=== PATIENT | female | born 1945 | race Caucasian/White ===

== ENCOUNTER 2020-07-11 06:52 | Outpatient (CLI) | payer BC, SELFPAY ==
--- NOTE | 2020-07-11 07:07 | USCV_ITS ---
Marie Becker Age: 74 Gender: F : 1945 Exam Date: 07/11/2020 07:22 Ordering Phys: Lennox Nice MD Technologist: Ruddy Prado [place] [facility] [place]: HTN Aortic Velocity @ SMA (cm/s) 87.7 RIGHT KIDNEY LEFT KIDNEY Velocity (cm/s) Velocity (cm/s) Sys/Muller Sys/Muller Resistive Index Resistive Index 91.3 / 25.8 0.72 Proximal Renal Artery 59.4 / 16.6 0.72 88.3 / 24.8 0.72 Mid Renal Artery 78.5 / 15.1 0.81 98.2 / 23.8 0.76 Distal Renal Artery 59.4 / 20.6 0.65 82.4 / 17.9 0.78 Hilar 72.1 / 18.2 0.75 72.4 / 11.2 0.85 Upper Pole 32.6 / 10.7 0.67 25.5 / 9.2 0.64 Mid Pole 30.7 / 9.0 0.71 44.4 / 10.5 0.76 Lower Pole 42.3 / 13.1 0.69 1.10 Renal Aortic Ratio 0.90 Accleration Index (cm/sec2) 1670.0 Hilar 1370.0 0 0 893.00 Upper Pole 707.00 407.00 Mid Pole 392.00 433.00 Lower Pole 986.00 90.5 Kidney Length (mm) 102.9 FINDINGS Normal kidney dimensions Normal arterial Doppler flow velocities and ratios Slightly elevated resistive indicis bilaterally CONCLUSIONS 1. No evidence of any renal artery stenosis 2. Some features of medical renal disease 3. Normal kidney dimensions bilaterally Dr Zach Richardson MD [facility] (Electronically Signed) Final Date: 11 July 2020 13:46 S
== END 2020-07-11 06:53 | disposition home or self-care (01) ==
LOC: US 06:53
PROVIDERS: PCP Family Medicine; Visit Provider Family Medicine
DX: I10 Essential (primary) hypertension (principal)
CPT/HCPCS: 93975

== ENCOUNTER 2020-08-01 13:15 | Inpatient (IN) | payer MEDICARE, BC, SELFPAY ==
[2020-08-01] VITALS (11 sets, daily range): BP systolic 101–145; BP diastolic 50–81; PULSE 64–118; RESP 14–18; TEMP 36.5–36.7; O2SAT 93–99; BMI 21.9
--- NOTE | 2020-08-01 13:32 | ECG_ITS ---
[facility] Test Date: 2020-08-01 Pat Name: Marie Becker Department: Room: Gender: Female Billing Representative: : 1945 Requested By: Wally Nova Order Number: [id number] Javan MD: Zach Richardson M.D. Measurements Intervals [place] Rate: 73 P: 31 ND: 149 QRS: -26 QRSD: 95 T: 79 QT: 409 QTc: 454 Interpretive Statements SINUS RHYTHM INCOMPLETE RIGHT BUNDLE BRANCH BLOCK [90+ ms QRS DURATION, TERMINAL R IN V1/V2, 40+ ms S IN I/aVL/V4/V5/V6] LEFT VENTRICULAR HYPERTROPHY AND ST-T CHANGE [VOLTAGE CRITERIA PLUS ST/T ABNORMALITY] POSSIBLE SEPTAL MYOCARDIAL INFARCTION , OF INDETERMINATE AGE [30 ms Q WAVE IN V1/V2] Compared to ECG 07/08/2019 21:39:48 Incomplete right bundle-branch block now present Myocardial infarct finding now present ST (T wave) deviation still present Electronically Signed On 08-01-2020 20:55:43 CDT by Zach Richardson M.D. [email or web address] state hospitalThe Betty Mills Companymercy health st[facility].[email or web address]/store/NU/[id number] bishop
--- NOTE | 2020-08-01 13:32 | XR_ITS ---
WS: [id number] XR chest 1V portable [id number] REASON FOR EXAM: dyspnea/cough FINDINGS: Suboptimal inspiratory effort. The heart is at the upper limits of normal in size. No active pulmonary parenchymal pleural disease. Degenerative spondylosis in the thoracic spine without other significant bony thorax abnormality. XR/XR chest 1V portable [id number] IMPRESSION: No acute chest abnormality.
[2020-08-01 13:42] LABS: Basophils # 0.1 10^3/uL (0.0-0.1); Basophils % 0.6 %; Eosinophils # 0.1 10^3/uL (0.0-0.8); Eosinophils % 0.8 %; Hemoglobin 13.5 g/dL (11.5-15.3); Lymphocytes # 2.1 10^3/uL (0.8-4.8); Lymphocytes % 26.5 %; Mean Corpuscular HGB Conc 34.6 g/dL (30.0-36.0); Mean Corpuscular Hemoglobin 30.8 pg (28.0-34.0); Mean Platelet Volume 10.9 fL (7.4-10.4); Monocytes # 0.8 10^3/uL (0.2-0.9); Monocytes % 9.7 %; Neutrophils # 4.82 10^3/uL (1.8-7.7); Neutrophils % 62.1 %; Nucleated Red Blood Cells % 0 %; Platelet Count 379 10^3/cmm (130-400); Red Blood Count 4.38 10^6/uL (4.1-5.3); Red Cell Distribution Width 12.6 % (12.1-15.1); White Blood Count 7.8 10^3/uL (4.0-10.0)
--- NOTE | 2020-08-01 13:59 | CT_ITS ---
WS: [id number] CT HEAD TECHNIQUE: Noncontrast CT of the head obtained from the skullbase to the vertex. CLINICAL INFORMATION: AMS COMPARISON: CT 2018 DLP: 754.[address] scans at [facility] use at least one of these dose optimization techniques: automat ed exposure control; mA and/or kV adjustment per patient size (includes targeted exams where dose is matched to clinical indication); or iterative reconstruction. FINDINGS: No evidence of intracranial hemorrhage or mass effect. Ventricular system and basal cisterns are cabral nt. Moderate small vessel changes. Moderate parenchymal volume loss. Chronic lacunar infarct left gama lamus unchanged from 2019. Normal posterior fossa. Normal fourth ventricle. small vessel changes with mild to moderate parenchymal volume loss. No extra-axial fluid collections. No evidence of mass or m ass effect. Normal pike-white differentiation. Paranasal sinuses and mastoid air cells are well aerated. .Normal visualized soft tissues. CT/CT head wo con* [id number] IMPRESSION: 1. No evidence of intracranial hemorrhage or mass effect. 2. Moderate small vessel changes with moderate parenchymal volume loss. 3. Chronic lacunar infarct left thalamus unchanged since 2019. 4. No acute intracranial findings. Notified Wally Cartagena DO at 08/01/2020 4:02 PM.
[2020-08-01 14:06] LABS: Troponin(5th) Baseline 12 ng/L (0-10)
[2020-08-01 14:28] LABS: Alanine Aminotransferase 21 U/L (0-33); Albumin Level 4.5 g/dL (3.5-5.2); Alkaline Phosphatase 100 IU/L (35-105); Aspartate Amino Transferase 20 U/L (0-32); Blood Urea Nitrogen 12 mg/dL (8-23); Calcium 10.4 mg/dL (8.5-10.5); Carbon Dioxide 22 mmol/L (22-29); Chloride 92 mmol/L (98-107); Globulin 2.6 g/dL (1.3-4.6); Glucose 166 mg/dL (65-115); Osmolality Calculated 274 mOsm/kg (285-295); Sodium 130 mmol/L (136-145); Total Bilirubin 0.5 mg/dL (0.15-1.2); Total Protein 7.1 g/dL (6.6-8.7)
[2020-08-01 14:31] LABS: Anion Gap 19.2 (5-19); Potassium 3.2 mmol/L (3.5-5.1)
--- NOTE | 2020-08-01 15:16 | ED_ITS ---
HPI - Syncope General: Chief Complaint: Syncope Stated Complaint: syncope Time Seen by Provider: 08/01/20 13:32 History of Present Illness: HPI narrative: 74-year-old female presents to the emergency room she was sitting at table with her friend and had a syncopal episode she never fell she did get rather diaphoretic according to the friend. Talk to the patient she cannot remember cannot What happened she also tell me the correct the day of the week month or year. She is able to relate that there is an upcoming presidential election but cannot recall the the COVID-19 pandemic. she is able to recite her birthdate and her home address. complaint: loss of consciousness and collapsed Onset (ago): minute(s) Description of event: post-event confusion Prodromal symptoms: none Witnessed: Yes - by Bystander Context: at rest Injuries sustained associated with event: none Associated symptoms: Deny abdominal pain, chest pain, fever(s), headache(s), lightheadedness, nausea, short of breath, vertigo or weakness Review of Systems Const: Denies: fever(s) ENMT: Denies: throat pain, ear or mastoid pain, nasal discharge or nasal congestion Card: Denies: chest pain or lightheadedness Resp: Denies: dyspnea, productive cough or non-productive cough GI: Denies: abdominal pain or nausea : Denies: flank pain, difficulty voiding, dysuria, urinary frequency or urinary urgency Skin/Breast: Denies: rash or pruritus Neuro: Denies: headache(s) or vertigo [facility] ED PFSH: Medical History (Updated 08/05/20 @ 16:02 by Sherri Gardner MD) History of stroke HTN (hypertension) Hypokalemia Hyponatremia Syncope Social History Smoking and tobacco status: never smoked Alcohol intake: never Lives independently: No (Patient states that she lives with her sister and brother sometimes.) Marital status: / Physical Exam Const: COMMON NORMALS: no acute distress GENERAL APPEARANCE: cooperative and comfortable ORIENTATION/CONSCIOUSNESS: Yes awake, Yes oriented to person, Yes oriented to place and Yes oriented to time HENMT: COMMON NORMALS: normocephalic, atraumatic and hearing grossly normal bilaterally HEAD & SCALP: normocephalic and atraumatic Eye: COMMON NORMALS: Equal, round and reactive pupils present, EOMs intact bilaterally, conjunctivae normal and no scleral icterus CONJUNCTIVA: Yes conjunctivae normal PUPIL: Yes Equal, round and reactive pupils present Neck/C-Spine: COMMON NORMALS: full ROM, no lymphadenopathy, supple and no JVD Lymph: LYMPHATIC: no lymphadenopathy noted and no lymphedema noted Resp: COMMON NORMALS: normal respiratory effort, No retractions, No use of accessory muscles and clear to auscultation bilaterally AUSCULTATION: clear to auscultation bilaterally Cardio: COMMON NORMALS: no JVD, regular rate, regular rhythm and No murmurs present (Cardio) RATE: regular rate RHYTHM: regular rhythm GI: COMMON NORMALS: Soft to palpation and No hepatosplenomegaly present AUSCULTATION: Yes normoactive bowel sounds PALPATION: Yes Soft to palpation, No Tenderness to palpation present (GI), No Guarding due to palpation present (GI) and Yes No hepatosplenomegaly present Extremity: COMMON NORMALS: normal to inspection, capillary refill normal, no clubbing, cyanosis or edema, no calf tenderness and no pedal edema Neuro: SENSORIUM/ORIENTATION: Yes oriented to person, Yes oriented to place and Yes oriented to time Skin: COMMON NORMALS: no rashes or lesions noted GENERAL SKIN EXAM: no rashes or lesions noted Course Vital Signs: Vital signs: Vital Signs Temperature 98.4 F 08/03/20 12:58 Pulse Rate 70 08/03/20 12:58 Respiratory Rate 16 08/03/20 12:58 Blood Pressure 139/62 08/03/20 12:58 Pulse Oximetry 96 08/03/20 12:58 MDM - Syncope MDM Narrative: Medical decision making narrative: Patient had a a syncopal- like episode suspect she may be on too many blood pressure medicines will admit to monitor for arrhythmia and further evaluate discussed Dr. Cruz he will accept patient on his services. Lab Data: Labs: Lab Results 08/01/20 08/01/20 08/01/20 Range/Units 13:00 13:00 13:00 WBC 7.8 (4.0-10.0) 10^3/ uL RBC 4.38 (4.1-5.3) 10^6/u L Hgb 13.5 (11.5-15.3) g/dL Hct 39.0 (37.0-47.0) % MCV 89.0 (81-99) fL MCH 30.8 (28.0-34.0) pg MCHC 34.6 (30.0-36.0) g/dL RDW 12.6 (12.1-15.1) % Plt Count 379 (130-400) 10^3/c mm MPV 10.9 H (7.4-10.4) fL Neut % (Auto) 62.1 % Lymph % (Auto) 26.5 % [place] % (Auto) 9.7 % Eos % (Auto) 0.8 % Baso % (Auto) 0.6 % Neut # (Auto) 4.82 (1.8-7.7) 10^3/u L Lymph # (Auto) 2.1 (0.8-4.8) 10^3/u L [place] # (Auto) 0.8 (0.2-0.9) 10^3/u L Eos # (Auto) 0.1 (0.0-0.8) 10^3/u L Baso # (Auto) 0.1 (0.0-0.1) 10^3/u L Nucleated RBC % (a uto) 0 % Nucleated RBCs # 0.0 /100WBC Specimen Type Sample Site ABG pH (7.35-7.45) ABG pCO2 (35-45) mmHg ABG pO2 (80.0-100.0) mmH g ABG HCO3 (22-26) mmol/L ABG O2 Saturation ABG Base Excess (-2.0-2.0) mmol/ L Raimundo Test A-a O2 Gradient (5-10) mmHg Hematocrit (37-47) % Hgb O2 Saturation (95-100) % Carboxyhemoglobin (0.4-20.1) %THgb Methemoglobin (0.4-1.5) % Total Hemoglobin (12-16) g/dL Ionized Calcium (1.1-1.4) mmol/L O2 Delivery Device FiO2 % Pickle Sorter ID Sodium 130 L (136-145) mmol/L Potassium 3.2 L (3.5-5.1) mmol/L Chloride 92 L (98-107) mmol/L Carbon Dioxide 22 (22-29) mmol/L Anion Gap 19.2 H (5-19) BUN 12 (8-23) mg/dL Creatinine 0.8 (0.5-0.9) mg/dL GFR Calculation Not Reportable Glucose 166 H (65-115) mg/dL Calculated Osmolal ity 274 L (285-295) mOsm/k g Calcium 10.4 (8.5-10.5) mg/dL Total Bilirubin 0.5 (0.15-1.2) mg/dL AST 20 (0-32) U/L ALT 21 (0-33) U/L Alkaline Phosphata se 100 (35-105) IU/L Ammonia (11-51) umol/L Troponin T Baselin e 12 H (0-10) ng/L Troponin T 120 Min [place] (0-10) ng/L Delta Troponin T (0-10) ABS# Total Protein 7.1 (6.6-8.7) g/dL Albumin 4.5 (3.5-5.2) g/dL Globulin 2.6 (1.3-4.6) g/dL 08/01/20 08/01/20 08/01/20 Range/Units 15:05 15:05 16:27 WBC (4.0-10.0) 10^3/ uL RBC (4.1-5.3) 10^6/u L Hgb (11.5-15.3) g/dL Hct (37.0-47.0) % MCV (81-99) fL MCH (28.0-34.0) pg MCHC (30.0-36.0) g/dL RDW (12.1-15.1) % Plt Count (130-400) 10^3/c mm MPV (7.4-10.4) fL Neut % (Auto) % Lymph % (Auto) % [place] % (Auto) % Eos % (Auto) % Baso % (Auto) % Neut # (Auto) (1.8-7.7) 10^3/u L Lymph # (Auto) (0.8-4.8) 10^3/u L [place] # (Auto) (0.2-0.9) 10^3/u L Eos # (Auto) (0.0-0.8) 10^3/u L Baso # (Auto) (0.0-0.1) 10^3/u L Nucleated RBC % (a uto) % Nucleated RBCs # /100WBC Specimen Type Arterial Sample Site Brachial, right ABG pH 7.45 (7.35-7.45) ABG pCO2 41.2 (35-45) mmHg ABG pO2 71.3 L (80.0-100.0) mmH g ABG HCO3 28.3 H (22-26) mmol/L ABG O2 Saturation 94.2 ABG Base Excess 3.8 H (-2.0-2.0) mmol/ L Raimundo Test Pos A-a O2 Gradient 3.6 L (5-10) mmHg Hematocrit 38.7 (37-47) % Hgb O2 Saturation 92.6 L (95-100) % Carboxyhemoglobin 1.0 (0.4-20.1) %THgb Methemoglobin 0.8 (0.4-1.5) % Total Hemoglobin 12.6 (12-16) g/dL Ionized Calcium 1.2 (1.1-1.4) mmol/L O2 Delivery Device Room air FiO2 21.0 % Pickle Sorter ID Jlg Sodium 133.0 (136-145) mmol/L Potassium 3.5 (3.5-5.1) mmol/L Chloride (98-107) mmol/L Carbon Dioxide (22-29) mmol/L Anion Gap (5-19) BUN (8-23) mg/dL Creatinine (0.5-0.9) mg/dL GFR Calculation Glucose 129.0 H (65-115) mg/dL Calculated Osmolal ity (285-295) mOsm/k g Calcium (8.5-10.5) mg/dL Total Bilirubin (0.15-1.2) mg/dL AST (0-32) U/L ALT (0-33) U/L Alkaline Phosphata se (35-105) IU/L Ammonia 12 (11-51) umol/L Troponin T Baselin e (0-10) ng/L Troponin T 120 Min [place] 10.32 H (0-10) ng/L Delta Troponin T -1.68 L (0-10) ABS# Total Protein (6.6-8.7) g/dL Albumin (3.5-5.2) g/dL Globulin (1.3-4.6) g/dL Discharge Plan Discharge Patient Disposition: Admitted As Inpatient Admit Provider: Serafin Cruz Condition: Stable Referrals: Lennox Nice MD [Primary Care Provider] - 08/17/20 10:30 am Discharge Diet: Usual diet Discharge Activity: Resume usual activity Patient Instructions: Syncope, Chronic Hypertension (GEN) Discharge Date/Time: 08/01/20 18:07 Coding Level of Care Code ED Client Account Manager for Chg Fwd Exam Comprehensive
[2020-08-01 15:28] LABS: Troponin 5 2HR 10.32 ng/L (0-10)
--- NOTE | 2020-08-01 15:32 | ECG_ITS ---
[facility] Test Date: 2020-08-01 Pat Name: Marie Becker Department: Room: 264 Gender: Female City Comptroller: : 1945 Requested By: Wally Nova Order Number: [id number] Javan MD: Zach Richardson M.D. Measurements Intervals [place] Rate: 108 P: 53 [place]: 155 QRS: -31 QRSD: 105 T: 125 QT: 355 QTc: 476 Interpretive Statements SINUS TACHYCARDIA.EFT AXIS DEVIATION [QRS AXIS < -30] INCOMPLETE RIGHT BUNDLE BRANCH BLOCK [90+ ms QRS DURATION, TERMINAL R IN V1/V2, 40+ ms S IN I/aVL/V4/V5/V6] LEFT VENTRICULAR HYPERTROPHY AND ST-T CHANGE [VOLTAGE CRITERIA PLUS ST/T ABNORMALITY] POSSIBLE SEPTAL MYOCARDIAL INFARCTION , OF INDETERMINATE AGE [30 ms Q WAVE IN V1/V2] Compared to ECG 08/01/2020 13:46:44 Left-axis deviation now present Sinus rhythm no longer present ST (T wave) deviation still present Myocardial infarct finding still present Electronically Signed On 08-02-2020 21:38:11 CDT by Zach Richardson M.D. [id number] f
[2020-08-01 15:42] LABS: Ammonia 12 umol/L (11-51); Troponin 5 2HR Delta -1.68 ABS# (0-10)
[2020-08-01] MEDS: metoclopramide 5 mg/mL SDV 2 mL 10 MG IVP (16:21)
[2020-08-01 16:38] LABS: ABG PCO2 41.2 mmHg (35-45); ABG PH Result 7.45 (7.35-7.45); Alveolar-Arterial Oxygen Gradi 3.6 mmHg (5-10); Arterial Blood Gas Hematocrit 38.7 % (37-47); Base Excess ABG 3.8 mmol/L (-2.0-2.0); Blood Gas Allen Test Pos; Blood Gas Sample Type Arterial; HCO3 ABG 28.3 mmol/L (22-26); HGB O2 Sat 92.6 % (95-100); Ionized Calcium Level - ABG 1.2 mmol/L (1.1-1.4); Methemoglobin 0.8 % (0.4-1.5); Oxygen Saturation ABG 94.2; PO2 ABG 71.3 mmHg (80.0-100.0); Potassium Level - ABG 3.5 mmol/L (3.5-5.0); Total Hemoglobin 12.6 g/dL (12-16)
[2020-08-01 16:39] LABS: Blood Gas Sample Site Brachial, right; Oxygen Device ROOM AIR
[2020-08-01 17:39] LABS: Add Urine Microscopic? NO
[2020-08-01 17:50] LABS: Bilirubin Urine Neg (Negative); Blood Urine Neg (Negative); Glucose Urine UA Norm (Normal); Ketones Urine Negative (Negative); Leukocyte Esterase Urine Negative (Negative); Nitrate Urine Negative (Negative); Protein Urine Neg (Negative); Specific Gravity, Urine 1.015 (1.005-1.030); Urine Appearance Clear (CLEAR); Urine Color Yellow (Yellow); Urobilinogen Urine Norm (Negative); pH Urine 7 (5-7)
[2020-08-01 17:59] LABS: Lactic Sepsis W/Reflex 1.5 mmol/L (0.5-2.2)
--- NOTE | 2020-08-01 18:05 | PM.HP ---
Providers/Chief Complaint Admitting Physician: Serafin Cruz MD Primary Care Provider: Lennox Nice MD Chief Complaint: syncope History of Present Illness Marie Becker is a 74 year old female past medical history hypertension, came in with chief complaint of sudden loss of consciousness today this morning, while she was sitting in the chair, the episode lasted for few seconds, she has no recollection of the episode, during the episode patient relative was near her she denies any seizure-like activity, any involuntary loss of urine, no postictal confusion state, no chest pain no shortness of breath no diaphoresis,no palpitation.She has not experienced any similar episode in the past. In ER: Vitals: Stable, EKG:NSR. ABG is fine. Mild hypokalemia: Was corrected.RBS:166 Troponin Baseline: 12---> 2 h: 10.32 Delta: -1.68 Urine analysis is clean Review of Systems General: Reports: 10 or more systems reviewed and unremarkable except in HPI and below Const: Denies: fever(s), chills, body aches, change in appetite or diaphoresis Card: Denies: palpitations, edema, swelling of feet/ankles, dyspnea on exertion, orthopnea or leg pain with exertion Resp: Denies: dyspnea, productive cough, wheezing or pain on inspiration GI: Denies: abdominal pain, nausea, vomiting, diarrhea or constipation : Denies: flank pain Musc: Denies: back pain, extremity pain or extremity swelling Neuro: Denies: headache(s), difficulty walking or confusion Medications/Allergies Home Medications Medication Instructions Recorded Confirmed Last Taken Type Vitamin C 1 tab PO PRN 08/01/20 08/01/20 Unknown History atorvastatin 10 mg PO DAILY 08/01/20 08/01/20 07/31/20 History clopidogrel 75 mg PO DAILY 08/01/20 08/01/20 08/01/20 10:00 History cyanocobalamin (vitamin B-12) 1,000 mcg PO DAILY 08/01/20 08/01/20 07/31/20 History [Vitamin B-12] hydralazine 50 mg PO TID 08/01/20 08/01/20 08/01/20 10:00 History hydrochlorothiazide 25 mg PO DAILY 08/01/20 08/01/20 08/01/20 History lisinopril 40 mg PO BID 08/01/20 08/01/20 08/01/20 History metoprolol tartrate 100 mg PO BID 08/01/20 08/01/20 Unknown History multivitamin [Multiple Vitamins] 1 tab PO PRN 08/01/20 08/01/20 Unknown History spironolactone 25 mg PO DAILY 08/01/20 08/01/20 07/31/20 History Allergies Allergy/AdvReac Type Severity Reaction Status Date / Time No Known Allergies Allergy Verified 08/01/20 14:53 Vitals/I&O/Wt Last Vital Signs Temp 97.7 F 08/01/20 13:16 Pulse 110 H 08/01/20 18:02 Resp 18 08/01/20 18:02 BP 126/50 08/01/20 18:02 Pulse Ox 97 08/01/20 18:02 Weight last 48 hrs Weight 50.802 kg Physical Exam Const: COMMON NORMALS: patient oriented x3 HENMT: COMMON NORMALS: normocephalic, atraumatic, hearing grossly normal bilaterally and external ears normal HEAD & SCALP: normocephalic and atraumatic EXTERNAL EAR: Yes external ears normal Eye: COMMON NORMALS: no scleral icterus GENERAL EYE: appearance normal, both eyes and all related structures Chest: COMMONS NORMALS: normal inspection of the chest and normal palpation of entire chest wall CHEST: Yes Symmetrical chest wall rise Resp: COMMON NORMALS: normal respiratory effort, No retractions, No use of accessory muscles and clear to auscultation bilaterally EFFORT & INSPECTION: Yes symmetric chest movement AUSCULTATION: clear to auscultation bilaterally Cardio: COMMON NORMALS: regular rate, regular rhythm, S1 normal heart sound present, S2 normal heart sound present, No gallops present (Cardio), No murmurs present (Cardio), No rub (Cardio) and Peripheral pulses 2+ throughout RATE: regular rate RHYTHM: regular rhythm HEART SOUNDS: S1 normal heart sound present and S2 normal heart sound present PERIPHERAL PULSES: Peripheral pulses 2+ throughout GI: COMMON NORMALS: Normal to inspection, nondistended, normoactive bowel sounds present, Soft to palpation, non-tender, No hepatosplenomegaly present and no masses AUSCULTATION: Yes normoactive bowel sounds PALPATION: Yes Soft to palpation and Yes No hepatosplenomegaly present RECTAL EXAM: deferred Extremity: COMMON NORMALS: no clubbing, cyanosis or edema and no pedal edema Neuro: COMMON NORMALS: patient oriented x3 Data : 08/01/20 13:00 08/01/20 13:00 A&P Assessment and plan (1) Syncope: Likely Vasovagal r/o other causes. Continue Tele Orthostatic Vital signs 2D Echo Status: Acute (2) HTN (hypertension): Continue Home medications. Hydralazine 50 mg Q8 H, Lisinopril 40 mg Q12H, Metoprolol tartarte 100 mg q12 h daily,Spironlactone 50 mg oral daily. Status: Acute (3) Hypokalemia: Admission Serum K: 3.2.Received 40 meq kcl in er. Monitor Serum Pottasium Status: Acute (4) Hyponatremia: Hypovolemic Hyponatremia likely 2/2 to poor oral intake. Will encourage oral fluid intake.Continue to monitor BMP. Status: Acute Additional A&P Information Code Status : Full code DVT PPX: Lovenox 40 mg sc daily Attestations Medical Necessity Statement*: She needs to be in hospital for Syncope work up. Coding Level of Care Code Acute Button Spindler for [facility] Fwd Diagnoses Syncope R55 HTN (hypertension) I10 Hypokalemia E87.6 Hyponatremia E87.1
[2020-08-01] MEDS: potassium chloride ER 10 mEq Tablet 40 MEQ PO (18:07)
[2020-08-01] MEDS: enoxaparin 40 mg/0.4 mL Syringe SUBCUT (18:41)
[2020-08-01 19:35] LABS: Troponin 5 6HR 8.05 ng/L (0-10)
[2020-08-01 19:36] LABS: Troponin 5 6HR Delta -3.95 ng/L (0-12)
[2020-08-01] MEDS: hyDRALAzine 50 mg Tablet PO (21:54)
[2020-08-02] VITALS (7 sets, daily range): BP systolic 118–165; BP diastolic 60–90; PULSE 68–97; RESP 12–18; TEMP 36.6–37.3; O2SAT 96–98
[2020-08-02 05:59] LABS: Basophils % 0.4 %; Eosinophils # 0.1 10^3/uL (0.0-0.8); Hematocrit 34.9 % (37.0-47.0); Hemoglobin 11.8 g/dL (11.5-15.3); Lymphocytes # 1.5 10^3/uL (0.8-4.8); Lymphocytes % 19.2 %; Mean Corpuscular HGB Conc 33.8 g/dL (30.0-36.0); Mean Corpuscular Hemoglobin 31.1 pg (28.0-34.0); Mean Corpuscular Volume 92.1 fL (81-99); Mean Platelet Volume 10.6 fL (7.4-10.4); Monocytes # 0.6 10^3/uL (0.2-0.9); Monocytes % 7.9 %; Neutrophils # 5.69 10^3/uL (1.8-7.7); Neutrophils % 71.2 %; Nucleated Red Blood Cells % 0 %; Platelet Count 248 10^3/cmm (130-400); Red Blood Count 3.79 10^6/uL (4.1-5.3); Red Cell Distribution Width 12.8 % (12.1-15.1)
[2020-08-02 06:44] LABS: Estmated Average Glucose 114; Hemoglobin A1C 5.6 % (4.0-6.0)
--- NOTE | 2020-08-02 07:00 | USCV_ITS ---
Marie Becker Age: 74 Gender: F : 1945 Exam Date: 08/02/2020 07:01 Ordering Phys: Serafin Cruz MD Technologist: Sharmin Chavira Exam Location: [facility] [place] Indication: SYNCOPE BP: 118 / 73 HR: 114 Rhythm: Sinus Technical Quality: Adequate MEASUREMENTS (Male / Female) Normal Values 2D ECHO LV Diastolic Diameter PLAX 2.9 cm 4.2 - 5.9 / 3.9 - 5.3 cm LV Systolic Diameter PLAX 2.0 cm LV Chamber Size 3.2 cm IVS Diastolic Thickness 1.2 cm 0.6 - 1.0 / 0.6 - 0.9 cm IVS Systolic Thickness 1.7 cm LVPW Diastolic Thickness 1.9 cm 0.6 - 1.0 / 0.6 - 0.9 cm LVPW Systolic Thickness 1.8 cm RV Chamber Size 2.8 cm LVOT Diameter 2.0 cm LV Ejection Fraction 2D Teich 60.3 % LV Ejection Fraction MOD 2C 53.7 % LV Ejection Fraction 2C AL 56.3 % LA Diameter 3.8 cm LA Width 3.3 cm LA Height 4.5 cm RA Width 3.3 cm RA Height 3.3 cm Aorta at Sinotubular Diameter 1.9 cm M-MODE LV Diastolic Diameter MM 3.2 cm 4.2 - 5.9 / 3.9 - 5.3 cm LV Systolic Diameter MM 1.9 cm LV Ejection Fraction MM Teich 72.5 % IVS Diastolic Thickness MM 1.3 cm 0.6 - 1.0 / 0.6 - 0.9 cm IVS Systolic Thickness MM 1.6 cm LVPW Diastolic Thickness MM 1.2 cm 0.6 - 1.0 / 0.6 - 0.9 cm LVPW Systolic Thickness MM 1.5 cm Aortic Annulus Diameter 2.3 cm LA Ao Ratio MM 1.8 MV E Point Septal Separation 1.3 cm DOPPLER AV Peak Velocity 156.0 cm/s LVOT Peak Velocity 95.0 cm/s AV Area Cont Eq vti 2.3 cm squared AV Area Cont Eq pk 2.0 cm squared MV Area PHT 3.0 cm squared Mitral E to A Ratio 0.7 MV E' Velocity 42.0 cm/s Mitral E to MV E' Ratio 8.2 Mitral E to LV E' Lateral Ratio 10.9 Mitral E to LV E' Septal Ratio 6.6 TR Peak Velocity 220.0 cm/s TR Peak Gradient 19.4 mmHg TV Peak E Velocity 56.0 cm/s Right Atrial Pressure 3.0 mmHg Pulmonary Artery Systolic Pressu 22.4 mmHg PV Peak Velocity 73.0 cm/s RV Acceleration Time 0.1 s RV Ejection Time 0.4 s RV AcT/ET 0.4 FINDINGS Left Ventricle Normal left ventricular size and systolic function, EF 55%. Mild left ventricular hypertrophy. No regional wall motion abnormalities. Grade I/IV diastolic dysfunction (abnormal relaxation filling pattern), normal to mildly elevated filling pressures. Right Ventricle The right ventricle is normal in size and function. Right Atrium The right atrium is normal in size. Left Atrium Mildly increased left atrial size. Mitral Valve Mild mitral valve regurgitation. Aortic Valve No gross abnormalities noted . Tricuspid Valve No gross abnormalities noted Pulmonic Valve No obvious stenosis. Pericardium Normal pericardium without effusion. Aorta Normal aortic annulus size. CONCLUSIONS Normal left ventricular size and systolic function, EF 55%. Mild left ventricular hypertrophy. No regional wall motion abnormalities. Grade I/IV diastolic dysfunction (abnormal relaxation filling pattern), normal to mildly elevated filling pressures. Mild mitral valve regurgitation. Normal PA pressure Mildly increased left atrial size. There is no pericardial effusion. There are no intracardiac masses. Compared to the previous study from 07/28/2019, there may not be a significant change Dr Zach Richardson MD FAC (Electronically Signed) Final Date: 02 August 2020 15:40 S
[2020-08-02 07:04] LABS: Phosphorus 3.4 mg/dL (2.5-4.5); Thyroid Stimulating Hormone 1.17 uIU/mL (0.27-4.20)
[2020-08-02 07:05] LABS: Chol HDL Ratio 3.34 mg/dL (0.0-4.40); Cholesterol 117 mg/dL (0-200); HDL Cholesterol 35 mg/dL (60-100); LDL Cholesterol Calculated 47 mg/dL (50-129); LDL HDL Ratio 1.34 RATIO (0.00-3.22); Triglycerides 177 mg/dL (0-150)
[2020-08-02 07:10] LABS: Alanine Aminotransferase 19 U/L (0-33); Albumin Level 3.8 g/dL (3.5-5.2); Alkaline Phosphatase 81 IU/L (35-105); Anion Gap 11.9 (5-19); Aspartate Amino Transferase 18 U/L (0-32); Blood Urea Nitrogen 11 mg/dL (8-23); Calcium 8.8 mg/dL (8.5-10.5); Carbon Dioxide 25 mmol/L (22-29); Chloride 96 mmol/L (98-107); Globulin 2.1 g/dL (1.3-4.6); Glucose 93 mg/dL (65-115); Osmolality Calculated 267 mOsm/kg (285-295); Potassium 3.9 mmol/L (3.5-5.1); Sodium 129 mmol/L (136-145); Total Bilirubin 0.4 mg/dL (0.15-1.2); Total Protein 5.9 g/dL (6.6-8.7)
[2020-08-02] MEDS: lisinopril 20 mg Tablet 40 MG PO ×2 (07:50→18:05)
[2020-08-02] MEDS: multivitamin therapeutic Tablet 1 TAB PO (07:50)
[2020-08-02] MEDS: hyDRALAzine 50 mg Tablet PO ×3 (07:50→22:04)
[2020-08-02] MEDS: hydroCHLOROthiazide 25 mg Tablet PO (07:50)
[2020-08-02] MEDS: spironolactone 25 mg Tablet PO (07:50)
[2020-08-02] MEDS: metoprolol tartrate 50 mg Tablet PO ×2 (07:50→18:05)
[2020-08-02] MEDS: atorvastatin 40 mg Tablet 20 MG PO (07:51)
[2020-08-02] MEDS: cyanocobalamin 1,000 mcg Tablet 1000 MCG PO (07:51)
[2020-08-02] MEDS: clopidogrel 75 mg Tablet PO (07:51)
[2020-08-02] MEDS: enoxaparin 40 mg/0.4 mL Syringe SUBCUT (18:04)
--- NOTE | 2020-08-02 20:53 | P.PN_ITS ---
Subjective Subjective: Interval history: No acute events overnight.Vitals and labs have been reviewed.No fresh episode of syncope or lightheadedness. Telemetry have been reviewed.No abnormal rhythm noted. 2D echo done: Vitals/I&O/Wt Last Vital Signs Temp 99.2 F 08/02/20 20:00 Pulse 68 08/02/20 20:00 Resp 12 08/02/20 20:00 BP 165/90 08/02/20 20:00 Pulse Ox 96 08/02/20 20:00 08/02/20 08/02/20 08/02/20 06:59 14:59 22:59 Intake Total 480 / 480 140 / 620 Output Total 600 / 600 Balance -120 / -120 140 / 20 Weight last 48 hrs Weight 50.802 kg Physical Exam Const: COMMON NORMALS: patient oriented x3 HENMT: COMMON NORMALS: normocephalic, atraumatic, hearing grossly normal bilaterally and external ears normal HEAD & SCALP: normocephalic and atraumatic EXTERNAL EAR: Yes external ears normal Eye: COMMON NORMALS: no scleral icterus GENERAL EYE: appearance normal, both eyes and all related structures Chest: COMMONS NORMALS: normal inspection of the chest and normal palpation of entire chest wall CHEST: Yes Symmetrical chest wall rise Resp: COMMON NORMALS: normal respiratory effort, No retractions, No use of accessory muscles and clear to auscultation bilaterally EFFORT & INSPECTION: Yes symmetric chest movement AUSCULTATION: clear to auscultation bilaterally Cardio: COMMON NORMALS: regular rate, regular rhythm, S1 normal heart sound present, S2 normal heart sound present, No gallops present (Cardio), No murmurs present (Cardio), No rub (Cardio) and Peripheral pulses 2+ throughout RATE: regular rate RHYTHM: regular rhythm HEART SOUNDS: S1 normal heart sound present and S2 normal heart sound present PERIPHERAL PULSES: Peripheral pulses 2+ throughout GI: COMMON NORMALS: Normal to inspection, nondistended, normoactive bowel sounds present, Soft to palpation, non-tender, No hepatosplenomegaly present and no masses AUSCULTATION: Yes normoactive bowel sounds PALPATION: Yes Soft to palpation and Yes No hepatosplenomegaly present RECTAL EXAM: deferred Extremity: COMMON NORMALS: no clubbing, cyanosis or edema and no pedal edema Neuro: COMMON NORMALS: patient oriented x3 Data : 08/02/20 05:22 10/07/20 05:22 A&P Assessment and plan (1) Syncope: Likely Vasovagal r/o other causes. Continue Tele Orthostatic Vital signs 2D Echo: Normal left ventricular size and systolic function, EF 55%. Mild left ventricular hypertrophy. No regional wall motion abnormalities. Grade I/IV diastolic dysfunction. Status: Acute (2) HTN (hypertension): Continue Home medications. Hydralazine 50 mg Q8 H, Lisinopril 40 mg Q12H, Metoprolol tartarte 100 mg q12 h daily,Spironlactone 50 mg oral daily. Status: Acute (3) Hypokalemia: Admission Serum K: 3.2.Received 40 meq kcl in er. Monitor Serum Pottasium Status: Acute (4) Hyponatremia: Hypovolemic Hyponatremia likely 2/2 to poor oral intake. Will encourage oral fluid intake.Continue to monitor BMP. Status: Acute Additional A&P Information Code Status : Full code DVT PPX: Lovenox 40 mg sc daily Attestations Medical Necessity Statement*: Patient needs to be in hospital for syncope management. Coding Level of Care Code Acute Skilled Nursing Facility Counselor for g Fwd Diagnoses Syncope R55 HTN (hypertension) I10 Hypokalemia E87.6 Hyponatremia E87.1
[2020-08-03] VITALS: BP 134/73; PULSE 77; RESP 16; TEMP 37; O2SAT 96
[2020-08-03 03:08] VITALS: BP 129/62; PULSE 81; RESP 24; TEMP 37.3; O2SAT 96
[2020-08-03 08:00] VITALS: BP 100/63; PULSE 86; RESP 17; TEMP 37.1; O2SAT 95
[2020-08-03 08:34] VITALS: PULSE 77; O2SAT 97
[2020-08-03] MEDS: cyanocobalamin 1,000 mcg Tablet 1000 MCG PO (10:23)
[2020-08-03] MEDS: hydroCHLOROthiazide 25 mg Tablet PO (10:23)
[2020-08-03] MEDS: metoprolol tartrate 50 mg Tablet PO (10:24)
[2020-08-03] MEDS: lisinopril 20 mg Tablet 40 MG PO (10:24)
[2020-08-03] MEDS: atorvastatin 40 mg Tablet 20 MG PO (10:24)
[2020-08-03] MEDS: hyDRALAzine 50 mg Tablet PO (10:24)
[2020-08-03] MEDS: clopidogrel 75 mg Tablet PO (10:25)
[2020-08-03] MEDS: spironolactone 25 mg Tablet PO (10:25)
[2020-08-03] MEDS: multivitamin therapeutic Tablet 1 TAB PO (10:25)
--- NOTE | 2020-08-03 11:30 | P.DS_ITS ---
Discharge Providers Date of Admission: 08/01/20 16:45 Date of Discharge: August 03, 2020 Attending Provider at Admission: Serafin Cruz MD Attending Provider at Discharge: Serafin Cruz MD Primary Care Provider: Lennox Nice MD Diagnoses at Discharge Discharge Diagnosis (1) Syncope: Status: Resolved (2) HTN (hypertension): Status: Chronic (3) Hypokalemia: Status: Resolved (4) Hyponatremia: Status: Resolved Reason for Visit Reason for Visit: syncope Hospital Course Discharge Summary: 74 year old female past medical history hypertension came in with chief complaint of sudden loss of consciousness today this morning, while she was sitting in the chair, the episode lasted for few seconds, she has no recollection of the episode, during the episode patient relative was near her she denies any seizure-like activity, any involuntary loss of urine, no postictal confusion state, no chest pain no shortness of breath no diaphoresis,no palpitation.She was admitted for syncope work up.During her hopspital stay. She was placed on Telemetry: which failed to shy any abnormal cardiac rhythm. EKG done on admission: Showed INCOMPLETE RIGHT BUNDLE BRANCH BLOCK .LEFT VENTRICULAR HYPERTROPHY. Admission ABG was fine. Head CT on admission without contrast: Failed to show any intracranial pathology. Chest x-ray : No acute chest abnormality. 2D echo done during this hospital stay: Normal left ventricular size and systolic function, EF 55%. Mild left ventricular hypertrophy. No regional wall motion abnormalities. Grade I/IV diastolic dysfunction. Mild MR, no other gross valvular abnormality. Troponins: were flat. TSH:1.17, HbA1c:5.6. No carotid Doppler ultrasound was done as a part of TIA/stroke workup was done as the patient was having no neurological deficit. Before discharge, patient was ambulating well and had no similar episode, during the entire hospital stay. Patient was discharged in stable condition. Physical Exam Const: COMMON NORMALS: patient oriented x3 HENMT: COMMON NORMALS: normocephalic, atraumatic, hearing grossly normal bilaterally and external ears normal HEAD & SCALP: normocephalic and atraumatic EXTERNAL EAR: Yes external ears normal Eye: COMMON NORMALS: no scleral icterus GENERAL EYE: appearance normal, both eyes and all related structures Chest: COMMONS NORMALS: normal inspection of the chest and normal palpation of entire chest wall CHEST: Yes Symmetrical chest wall rise Resp: COMMON NORMALS: normal respiratory effort, No retractions, No use of accessory muscles and clear to auscultation bilaterally EFFORT & INSPECTION: Yes symmetric chest movement AUSCULTATION: clear to auscultation bilaterally Cardio: COMMON NORMALS: regular rate, regular rhythm, S1 normal heart sound present, S2 normal heart sound present, No gallops present (Cardio), No murmurs present (Cardio), No rub (Cardio) and Peripheral pulses 2+ throughout RATE: regular rate RHYTHM: regular rhythm HEART SOUNDS: S1 normal heart sound present and S2 normal heart sound present PERIPHERAL PULSES: Peripheral pulses 2+ throughout GI: COMMON NORMALS: Normal to inspection, nondistended, normoactive bowel sounds present, Soft to palpation, non-tender, No hepatosplenomegaly present and no masses AUSCULTATION: Yes normoactive bowel sounds PALPATION: Yes Soft to palpation and Yes No hepatosplenomegaly present RECTAL EXAM: deferred Extremity: COMMON NORMALS: no clubbing, cyanosis or edema and no pedal edema Neuro: COMMON NORMALS: patient oriented x3 Discharge Data Data Completed and Pending: Completed Studies During Hospitalization Category Date Time Status CT head wo con* 7 0450 Stat Cat Scan 08/01/20 13:59 Completed XR chest 1V duy ble [id number] Stat Exams 08/01/20 13:32 Completed CV echo complete* [id number] Routine Ultrasound 08/02/20 07:00 Completed Vitals: Last Vital Signs Temp 98.7 F 08/03/20 08:00 Pulse 77 08/03/20 08:34 Resp 17 08/03/20 08:00 BP 100/63 08/03/20 08:00 Pulse Ox 97 08/03/20 08:34 Discharge Plan Discharge Patient Disposition: Home Condition: Stable Prescriptions: Continued Multiple Vitamins Tablet 1 tab PO PRN RF: 0 atorvastatin 10 mg tablet 10 mg PO DAILY RF: 0 metoprolol tartrate 100 mg tablet 100 mg PO BID RF: 0 Vitamin B-12 1,000 mcg Tablet 1,000 mcg PO DAILY RF: 0 clopidogrel 75 mg tablet 75 mg PO DAILY RF: 0 spironolactone 25 mg tablet 25 mg PO DAILY RF: 0 hydralazine 50 mg tablet 50 mg PO TID RF: 0 hydrochlorothiazide 25 mg tablet 25 mg PO DAILY RF: 0 lisinopril 40 mg tablet 40 mg PO BID RF: 0 Vitamin C 1 tab PO PRN RF: 0 Discharge Orders: Discharge Order (Routine); Ordered 08/03/20 Ordered By: Serafin Cruz Referrals: Lennox Nice MD [Primary Care Provider] - 08/17/20 10:30 am Discharge Diet: Usual diet Discharge Activity: Resume usual activity Patient Instructions: Syncope, Chronic Hypertension (GEN) Discharge Date/Time: 08/03/20 13:00 Discharge Attestations Time Spent in Discharge Care*: greater than 30 min Specific Discharge Activities: Specific discharge activities: educating patient, discussing with special education case manager/social workers/dc planners, documenting/other paperwork and evaluating patient/reviewing data Status at Discharge: Cognitive status at discharge: cognitively intact , Behavioral status at discharge: cooperative , Functional status at discharge: independent ambulation Overall status at discharge: patient is back to baseline Quality Metrics Clinical Quality Measures During this hospital stay, did patient experience: None Coding Level of Care Code Acute [place] [employer] Pusher for Chg Fwd Diagnoses Syncope R55 HTN (hypertension) I10 Hypokalemia E87.6 Hyponatremia E87.1
[2020-08-03 12:00] VITALS: BP 139/62; PULSE 70; RESP 15; RESP 16; TEMP 36.9; O2SAT 96; O2SAT 98
[2020-08-03 12:58] VITALS: BP 139/62; PULSE 70; RESP 16; TEMP 36.9; O2SAT 96
== END 2020-08-03 13:00 | disposition home or self-care (01) | DRG 312 ==
LOC: ER 17:01 → MEDSURG 17:51
PROVIDERS: Family Medicine; Admitting Provider Internal Medicine; PCP Family Medicine; Visit Provider Internal Medicine
DX: R55 Syncope and collapse (principal); E87.1 Hypo-osmolality and hyponatremia; I10 Essential (primary) hypertension; E87.6 Hypokalemia; I45.10 Unspecified right bundle-branch block; Z79.02 Long term (current) use of antithrombotics/antiplatelets
CPT/HCPCS: 12345; 36415; 36600; 70450; 71045; 80051; 80053; 80061; 81003; 82140; 82810; 83036; 83605; 83735; 83986; 84100; 84443; 84484; 85025; 93005; 93306; 96372; 99284; J1650; J2765

== ENCOUNTER 2020-08-03 14:17 | Emergency (ER) | payer BC, MEDICARE, SELFPAY ==
[2020-08-03 14:24] VITALS: BP 124/73; PULSE 61; RESP 16; TEMP 36.4; O2SAT 96; BMI 25.6
[2020-08-03 14:52] LABS: Glucose Point of Care 130 mg/dL (70-110)
--- NOTE | 2020-08-03 15:25 | W.ED.SYNCOPE ---
HPI - Syncope General: Chief Complaint: Syncope Stated Complaint: JUST D/C TODAY, NOT RESPONDING WELL AFTER D/C Time Seen by Provider: 08/03/20 14:24 History of Present Illness: HPI narrative: 74yo female presents shortly after being discharged from the hospital today. She had another syncopal-like episode. She had recently been admitted and evaluated for TIA versus CVA there is some concern about hypotension is being driving factor of these episodes. Echocardiogram was unremarkable. In reading the notes and talking to the discharging physician the other test to be considered with a carotid ultrasound but that was not done because not felt that was likely to be related to what was going on. MD complaint: almost passed out and collapsed Onset (ago): minute(s) Prodromal symptoms: lightheaded Witnessed: Yes - by Bystander Context: at rest Associated symptoms: Deny abdominal pain, chest pain, fever(s), headache(s), lightheadedness, nausea, short of breath, vertigo or weakness History: previous syncopal episode Treatments prior to arrival: none Review of Systems Const: Denies: fever(s) ENMT: Denies: throat pain, ear or mastoid pain, nasal discharge or nasal congestion Card: Denies: chest pain or lightheadedness Resp: Denies: dyspnea, productive cough or non-productive cough GI: Denies: abdominal pain or nausea : Denies: flank pain, difficulty voiding, dysuria, urinary frequency or urinary urgency Skin/Breast: Denies: rash or pruritus Neuro: Denies: headache(s) or vertigo PFSH ED PFSH: Medical History History of stroke HTN (hypertension) Hypokalemia Hyponatremia Syncope Ventricular tachycardia by electrocardiogram Social History Smoking and tobacco status: never smoked Alcohol intake: never Lives independently: No (Patient states that she lives with her sister and brother sometimes.) Marital status: / Physical Exam Const: COMMON NORMALS: no acute distress GENERAL APPEARANCE: cooperative and comfortable ORIENTATION/CONSCIOUSNESS: Yes awake, Yes oriented to person, Yes oriented to place and Yes oriented to time HENMT: COMMON NORMALS: normocephalic and atraumatic HEAD & SCALP: normocephalic and atraumatic Neck/C-Spine: COMMON NORMALS: no JVD Resp: COMMON NORMALS: normal respiratory effort, No retractions, No use of accessory muscles and clear to auscultation bilaterally AUSCULTATION: clear to auscultation bilaterally Cardio: COMMON NORMALS: no JVD, regular rate, regular rhythm and No murmurs present (Cardio) RATE: regular rate RHYTHM: regular rhythm GI: COMMON NORMALS: Soft to palpation and No hepatosplenomegaly present AUSCULTATION: Yes normoactive bowel sounds PALPATION: Yes Soft to palpation, No Tenderness to palpation present (GI), No Guarding due to palpation present (GI) and Yes No hepatosplenomegaly present Extremity: COMMON NORMALS: normal to inspection, capillary refill normal, no clubbing, cyanosis or edema, no calf tenderness and no pedal edema Neuro: SENSORIUM/ORIENTATION: Yes oriented to person, Yes oriented to place and Yes oriented to time Skin: COMMON NORMALS: no rashes or lesions noted GENERAL SKIN EXAM: no rashes or lesions noted Course Vital Signs: Vital signs: Vital Signs Temperature 97.5 F L 08/03/20 14:24 Pulse Rate 73 08/03/20 17:50 Respiratory Rate 16 08/03/20 14:24 Blood Pressure 117/75 08/03/20 17:50 Pulse Oximetry 95 08/03/20 17:50 MDM - Syncope MDM Narrative: Medical decision making narrative: Reviewed the recent hospitalization and her medication list were going to decrease her medicines (stop spironolactone and hydralazine) and have her follow-up with her primary care doctor early next week. Should keep a blood pressure log regularly and bring that to her next appointment Lab Data: Labs: Lab Results 08/03/20 08/03/20 08/03/20 Range/Units 14:48 15:37 15:37 WBC 9.1 (4.0-10.0) 10^3/ uL RBC 4.51 (4.1-5.3) 10^6/u L Hgb 14.0 (11.5-15.3) g/dL Hct 42.4 (37.0-47.0) % MCV 94.0 (81-99) fL MCH 31.0 (28.0-34.0) pg MCHC 33.0 (30.0-36.0) g/dL RDW 12.7 (12.1-15.1) % Plt Count 283 (130-400) 10^3/c mm MPV 10.5 H (7.4-10.4) fL Neut % (Auto) 78.3 % Lymph % (Auto) 11.3 % [place] % (Auto) 9.4 % Eos % (Auto) 0.7 % Baso % (Auto) 0.2 % Neut # (Auto) 7.13 (1.8-7.7) 10^3/u L Lymph # (Auto) 1.0 (0.8-4.8) 10^3/u L [place] # (Auto) 0.9 (0.2-0.9) 10^3/u L Eos # (Auto) 0.1 (0.0-0.8) 10^3/u L Baso # (Auto) 0.0 (0.0-0.1) 10^3/u L Nucleated RBC % (a uto) 0 % Nucleated RBCs # 0.0 /100WBC Sodium 130 L (136-145) mmol/L Potassium 4.0 (3.5-5.1) mmol/L Chloride 92 L (98-107) mmol/L Carbon Dioxide 24 (22-29) mmol/L Anion Gap 18.0 (5-19) BUN 13 (8-23) mg/dL Creatinine 0.8 (0.5-0.9) mg/dL GFR Calculation Not Reportable Glucose 113 (65-115) mg/dL POC Glucose 130 (70-110) mg/dL Calculated Osmolal ity 271 L (285-295) mOsm/k g Calcium 10.2 (8.5-10.5) mg/dL Total Bilirubin 0.6 (0.15-1.2) mg/dL AST 28 (0-32) U/L ALT 32 (0-33) U/L Alkaline Phosphata se 100 (35-105) IU/L Total Protein 7.2 (6.6-8.7) g/dL Albumin 4.4 (3.5-5.2) g/dL Globulin 2.8 (1.3-4.6) g/dL Discharge Plan Discharge Patient Disposition: Home Clinical Impression: HTN (hypertension), Syncope due to orthostatic hypotension Condition: Stable Prescriptions: Discontinued spironolactone 25 mg tablet 25 mg PO DAILY RF: 0 hydralazine 50 mg tablet 50 mg PO TID RF: 0 No Action metoprolol succinate 50 mg Tablet Extended Release 24 Hr 50 mg PO DAILY Qty: 30 RF: 0 lisinopril 20 mg Tablet 40 mg PO DAILY Qty: 30 RF: 0 multivitamin [Multiple Vitamins] Tablet 2 tab PO DAILY RF: 0 cyanocobalamin (vitamin B-12) [Vitamin B-12] 1,000 mcg Tablet 1,000 mcg PO DAILY RF: 0 Vitamin C 1 tab PO DAILY RF: 0 Discharge Orders: Discharge Order (Routine); Ordered 08/03/20 Ordered By: Wally Cartagena Referrals: Lennox Nice MD [Primary Care Provider] - Discharge Diet: Usual diet Discharge Activity: Limit activity as instructed Activity Restrictions/Additional Instructions: No strenuous activities follow-up with Dr. Dietz in the next 3 to 4 days. Discharge Date/Time: 08/03/20 17:50 Coding Level of Care Code ED Lens Polisher for Hannah Wray
[2020-08-03 15:26] VITALS: O2SAT 96
--- NOTE | 2020-08-03 15:29 | USCV_ITS ---
[place] Marie Age: 74 Gender: F : 1945 Exam Date: 08/03/2020 15:46 Ordering Phys: Wally Cartagena DO Technologist: Vik Salcedo Exam Location: [facility] Indication: DIZZINESS Risk Factors: Previous Vascular Surgery: Right Brachial BP: / Left Brachial BP: / Right Left Velocity (cm/s) Spectral Plaque Velocity (cm/s) Spectral Plaque Syst/Diast Broadening Syst/Diast Broadening 68.40/ 11.00 Prox CCA 49.20 / 11.20 46.00/ 8.70 Mid CCA 49.20 / 8.90 42.90/ 8.70 Distal CCA 54.80 / 7.30 55.60/ 12.70 Prox ICA 50.30 / 10.60 50.80/ 8.70 Mid ICA 84.10 / 21.00 55.60/ 18.30 Distal ICA 100.87/ 26.17 66.70 ECA 75.50 0.81 ICA/CCA 2.19 Antegrade Vertebral Antegrade 62.70/ 11.10 cm/s 51.30/ 14.50 cm/s Tri Subclavian Tri 31.30 101.3 0 CONCLUSIONS Right ICA stenosis <50%. Mild atheromatous plaque right carotid bulb/ICA. Left ICA stenosis <50%. Mild atheromatous plaque left carotid bulb/ICA. Normal antegrade Doppler flow noted in the right vertebral artery. Normal antegrade Doppler flow noted in the left vertebral artery. Kaushik Shelley MD (Electronically Signed) Final Date: 03 August 2020 16:28 S
[2020-08-03 15:47] LABS: Basophils % 0.2 %; Eosinophils # 0.1 10^3/uL (0.0-0.8); Eosinophils % 0.7 %; Hematocrit 42.4 % (37.0-47.0); Lymphocytes % 11.3 %; Mean Platelet Volume 10.5 fL (7.4-10.4); Monocytes # 0.9 10^3/uL (0.2-0.9); Monocytes % 9.4 %; Neutrophils # 7.13 10^3/uL (1.8-7.7); Neutrophils % 78.3 %; Nucleated Red Blood Cells % 0 %; Platelet Count 283 10^3/cmm (130-400); Red Blood Count 4.51 10^6/uL (4.1-5.3); Red Cell Distribution Width 12.7 % (12.1-15.1); White Blood Count 9.1 10^3/uL (4.0-10.0)
[2020-08-03 15:57] LABS: Alanine Aminotransferase 32 U/L (0-33); Albumin Level 4.4 g/dL (3.5-5.2); Alkaline Phosphatase 100 IU/L (35-105); Aspartate Amino Transferase 28 U/L (0-32); Blood Urea Nitrogen 13 mg/dL (8-23); Calcium 10.2 mg/dL (8.5-10.5); Carbon Dioxide 24 mmol/L (22-29); Chloride 92 mmol/L (98-107); Globulin 2.8 g/dL (1.3-4.6); Glucose 113 mg/dL (65-115); Osmolality Calculated 271 mOsm/kg (285-295); Sodium 130 mmol/L (136-145); Total Bilirubin 0.6 mg/dL (0.15-1.2); Total Protein 7.2 g/dL (6.6-8.7)
[2020-08-03 17:07] VITALS: BP 129/81; BP 147/105; BP 164/76; PULSE 74; PULSE 89; PULSE 97
[2020-08-03 17:10] VITALS: BP 164/76; PULSE 73; O2SAT 97
[2020-08-03 17:50] VITALS: BP 117/75; PULSE 73; O2SAT 95
== END 2020-08-03 17:50 | disposition home or self-care (01) ==
PROVIDERS: Nurse Practitioner Family; Emergency Provider Family Medicine; PCP Family Medicine
DX: I95.1 Orthostatic hypotension (principal); I10 Essential (primary) hypertension; Z86.73 Personal history of transient ischemic attack (TIA), and cerebral infarction without residual deficits
CPT/HCPCS: 12345; 36415; 36416; 80053; 82962; 85025; 93880; 99282; 99283

== ENCOUNTER 2020-08-05 11:01 | Observation (INO) | payer BC, SELFPAY ==
[2020-08-05] VITALS (7 sets, daily range): BP systolic 96–151; BP diastolic 47–86; PULSE 55–66; RESP 14–19; TEMP 36.5–36.7; O2SAT 94–100; BMI 29.2
--- NOTE | 2020-08-05 11:33 | XRR_ITS ---
PROCEDURE INFORMATION: Exam: XR Chest, 1 View Exam date and time: 08/05/2020 11:34 AM Age: 74 years old Clinical indication: Dyspnea; Additional info: Dyspnea/cough TECHNIQUE: Imaging protocol: XR of the chest Views: 1 view. COMPARISON: CR XR chest 1V portable [id number] 08/01/2020 1:54 PM FINDINGS: Lungs: Unremarkable. No consolidation. Pleural space: Unremarkable. No pleural effusion. No pneumothorax. Heart/Mediastinum: Unremarkable. No cardiomegaly. Bones/joints: Unremarkable. XR/XR chest 1V portable [id number] IMPRESSION: No acute findings.
--- NOTE | 2020-08-05 11:33 | ECG_ITS ---
[facility] Test Date: 2020-08-05 Pat Name: Marie Becker Department: Room: 104 Gender: Female Tear Down Man: : 1945 Requested By: Wally Nova Order Number: [id number] Javan MD: Sherri Gardner M.D. Measurements Intervals [place] Rate: 55 P: 12 KS: 142 QRS: -23 QRSD: 93 T: -1 QT: 450 QTc: 431 Interpretive Statements SINUS BRADYCARDIA BORDERLINE LEFT AXIS DEVIATION [QRS AXIS < -20] LEFT VENTRICULAR HYPERTROPHY AND ST-T CHANGE [VOLTAGE CRITERIA PLUS ST/T ABNORMALITY] Compared to ECG 08/01/2020 16:48:47 Sinus tachycardia no longer present Incomplete right bundle-branch block no longer present Myocardial infarct finding no longer present ST (T wave) deviation still present Electronically Signed On 08-05-2020 17:55:06 CDT by Sherri Gardner M.D. [email or web address]
[2020-08-05 11:46] LABS: Basophils % 0.6 %; Eosinophils # 0.1 10^3/uL (0.0-0.8); Eosinophils % 2.1 %; Hematocrit 39.7 % (37.0-47.0); Hemoglobin 13.4 g/dL (11.5-15.3); Lymphocytes # 1.5 10^3/uL (0.8-4.8); Lymphocytes % 23.3 %; Mean Corpuscular HGB Conc 33.8 g/dL (30.0-36.0); Mean Corpuscular Hemoglobin 30.7 pg (28.0-34.0); Mean Corpuscular Volume 91.1 fL (81-99); Mean Platelet Volume 10.7 fL (7.4-10.4); Monocytes # 0.7 10^3/uL (0.2-0.9); Monocytes % 10.5 %; Neutrophils # 3.95 10^3/uL (1.8-7.7); Neutrophils % 63.2 %; Nucleated Red Blood Cells % 0 %; Platelet Count 329 10^3/cmm (130-400); Red Blood Count 4.36 10^6/uL (4.1-5.3); Red Cell Distribution Width 12.2 % (12.1-15.1); White Blood Count 6.3 10^3/uL (4.0-10.0)
--- NOTE | 2020-08-05 11:54 | W.ED.SYNCOPE ---
HPI - Syncope General: Chief Complaint: Syncope Stated Complaint: SYNCOPE Time Seen by Provider: 08/05/20 11:05 History of Present Illness: HPI narrative: 74-year-old female presents emergency room with complaint of syncopal episode. She has had several of these this week. Initially she was seen and admitted to evaluate Dr. Cruz and then discharged home the following day unremarkable work-up. She returned the same day she was discharged we stopped several of her antihypertensives. She returns today complaining of another episode of syncope while sitting at home she did not have any chest pain. She is not had any further problems then. In the ER she is awake and alert with no specific complaints. This is a witnessed episode there is no tonic-clonic movements. MD complaint: loss of consciousness Onset (ago): minute(s) Prodromal symptoms: none Witnessed: Yes - by Bystander Context: at rest Injuries sustained associated with event: none Associated symptoms: Deny abdominal pain, chest pain, fever(s), headache(s), lightheadedness, nausea, short of breath, vertigo or weakness History: previous syncopal episode Treatments prior to arrival: none Review of Systems Const: Denies: fever(s) ENMT: Denies: throat pain, ear or mastoid pain, nasal discharge or nasal congestion Card: Denies: chest pain or lightheadedness Resp: Denies: dyspnea, productive cough or non-productive cough GI: Denies: abdominal pain or nausea : Denies: flank pain, difficulty voiding, dysuria, urinary frequency or urinary urgency Skin/Breast: Denies: rash or pruritus Neuro: Denies: headache(s) or vertigo PFS ED PFSH: Medical History HTN (hypertension) Hypokalemia Hyponatremia Syncope Physical Exam Const: COMMON NORMALS: no acute distress GENERAL APPEARANCE: cooperative and comfortable ORIENTATION/CONSCIOUSNESS: Yes awake, Yes oriented to person, Yes oriented to place and Yes oriented to time HENMT: COMMON NORMALS: normocephalic, atraumatic, hearing grossly normal bilaterally, external ears normal, EAC's normal, TM's normal bilaterally, Normal nasal mucous membranes and turbinates present, moist oral mucous membranes and oropharynx normal HEAD & SCALP: normocephalic and atraumatic NOSE: Normal nasal mucous membranes and turbinates present EXTERNAL EAR: Yes external ears normal EXTERNAL AUDITORY CANAL: EAC's normal TYMPANIC MEMBRANE: TM's normal bilaterally Eye: COMMON NORMALS: Equal, round and reactive pupils present, EOMs intact bilaterally, conjunctivae normal and no scleral icterus CONJUNCTIVA: Yes conjunctivae normal PUPIL: Yes Equal, round and reactive pupils present Neck/C-Spine: COMMON NORMALS: full ROM, no lymphadenopathy, supple and no JVD Lymph: LYMPHATIC: no lymphadenopathy noted and no lymphedema noted Resp: COMMON NORMALS: normal respiratory effort, No retractions, No use of accessory muscles and clear to auscultation bilaterally AUSCULTATION: clear to auscultation bilaterally Cardio: COMMON NORMALS: no JVD, regular rate, regular rhythm and No murmurs present (Cardio) RATE: regular rate RHYTHM: regular rhythm GI: COMMON NORMALS: Soft to palpation and No hepatosplenomegaly present AUSCULTATION: Yes normoactive bowel sounds PALPATION: Yes Soft to palpation, No Tenderness to palpation present (GI), No Guarding due to palpation present (GI) and Yes No hepatosplenomegaly present Extremity: COMMON NORMALS: normal to inspection, capillary refill normal, no clubbing, cyanosis or edema, no calf tenderness and no pedal edema Neuro: SENSORIUM/ORIENTATION: Yes oriented to person, Yes oriented to place and Yes oriented to time Skin: COMMON NORMALS: no rashes or lesions noted GENERAL SKIN EXAM: no rashes or lesions noted Course Vital Signs: Vital signs: Vital Signs Temperature 97.7 F 08/05/20 11:03 Pulse Rate 59 L 08/05/20 11:47 Respiratory Rate 18 08/05/20 11:03 Blood Pressure 119/74 08/05/20 11:47 Pulse Oximetry 98 08/05/20 11:03 MDM - Syncope MDM Narrative: Medical decision making narrative: Discussed with Dr. Dolan. Would not recommend stopping hydrochlorothiazide and possibly completely stopping the hydralazine will monitor her she may need further cardiac work-up including an event monitor she will be placed on observation in [facility]. Lab Data: Labs: Lab Results 08/05/20 08/05/20 08/05/20 Range/Units 10:50 10:50 10:50 WBC 6.3 (4.0-10.0) 10^3/ uL RBC 4.36 (4.1-5.3) 10^6/u L Hgb 13.4 (11.5-15.3) g/dL Hct 39.7 (37.0-47.0) % MCV 91.1 (81-99) fL MCH 30.7 (28.0-34.0) pg MCHC 33.8 (30.0-36.0) g/dL RDW 12.2 (12.1-15.1) % Plt Count 329 (130-400) 10^3/c mm MPV 10.7 H (7.4-10.4) fL Neut % (Auto) 63.2 % Lymph % (Auto) 23.3 % [place] % (Auto) 10.5 % Eos % (Auto) 2.1 % Baso % (Auto) 0.6 % Neut # (Auto) 3.95 (1.8-7.7) 10^3/u L Lymph # (Auto) 1.5 (0.8-4.8) 10^3/u L [place] # (Auto) 0.7 (0.2-0.9) 10^3/u L Eos # (Auto) 0.1 (0.0-0.8) 10^3/u L Baso # (Auto) 0.0 (0.0-0.1) 10^3/u L Nucleated RBC % (a uto) 0 % Nucleated RBCs # 0.0 /100WBC Sodium 130 L (136-145) mmol/L Potassium 4.1 (3.5-5.1) mmol/L Chloride 93 L (98-107) mmol/L Carbon Dioxide 25 (22-29) mmol/L Anion Gap 16.1 (5-19) BUN 13 (8-23) mg/dL Creatinine 0.8 (0.5-0.9) mg/dL GFR Calculation Not Reportable Glucose 143 H (65-115) mg/dL Calculated Osmolal ity 273 L (285-295) mOsm/k g Calcium 10.1 (8.5-10.5) mg/dL Total Bilirubin 0.5 (0.15-1.2) mg/dL AST 36 H (0-32) U/L ALT 47 H (0-33) U/L Alkaline Phosphata se 93 (35-105) IU/L Creatine Kinase (26-192) U/L Troponin T Baselin e 12 H (0-10) ng/L Total Protein 6.6 (6.6-8.7) g/dL Albumin 4.4 (3.5-5.2) g/dL Globulin 2.2 (1.3-4.6) g/dL 08/05/20 Range/Units 10:50 WBC (4.0-10.0) 10^3/ uL RBC (4.1-5.3) 10^6/u L Hgb (11.5-15.3) g/dL Hct (37.0-47.0) % MCV (81-99) fL MCH (28.0-34.0) pg MCHC (30.0-36.0) g/dL RDW (12.1-15.1) % Plt Count (130-400) 10^3/c mm MPV (7.4-10.4) fL Neut % (Auto) % Lymph % (Auto) % [place] % (Auto) % Eos % (Auto) % Baso % (Auto) % Neut # (Auto) (1.8-7.7) 10^3/u L Lymph # (Auto) (0.8-4.8) 10^3/u L [place] # (Auto) (0.2-0.9) 10^3/u L Eos # (Auto) (0.0-0.8) 10^3/u L Baso # (Auto) (0.0-0.1) 10^3/u L Nucleated RBC % (a uto) % Nucleated RBCs # /100WBC Sodium (136-145) mmol/L Potassium (3.5-5.1) mmol/L Chloride (98-107) mmol/L Carbon Dioxide (22-29) mmol/L Anion Gap (5-19) BUN (8-23) mg/dL Creatinine (0.5-0.9) mg/dL GFR Calculation Glucose (65-115) mg/dL Calculated Osmolal ity (285-295) mOsm/k g Calcium (8.5-10.5) mg/dL Total Bilirubin (0.15-1.2) mg/dL AST (0-32) U/L ALT (0-33) U/L Alkaline Phosphata se (35-105) IU/L Creatine Kinase 81 (26-192) U/L Troponin T Baselin e (0-10) ng/L Total Protein (6.6-8.7) g/dL Albumin (3.5-5.2) g/dL Globulin (1.3-4.6) g/dL Discharge Plan Discharge Patient Disposition: Placed in Observation Clinical Impression: Syncope, Hypertension Condition: Stable Referrals: Lennox Nice MD [Primary Care Provider] - Coding Level of Care Code ED Parimutuel Clerk for Chg Fwd Exam Comprehensive
[2020-08-05 11:59] LABS: Creatine Phosphokinase 81 U/L (26-192)
[2020-08-05 12:00] LABS: Alanine Aminotransferase 47 U/L (0-33); Albumin Level 4.4 g/dL (3.5-5.2); Alkaline Phosphatase 93 IU/L (35-105); Aspartate Amino Transferase 36 U/L (0-32); Blood Urea Nitrogen 13 mg/dL (8-23); Calcium 10.1 mg/dL (8.5-10.5); Carbon Dioxide 25 mmol/L (22-29); Chloride 93 mmol/L (98-107); Creatinine Clr Calc Pharmacy 55.8072; Globulin 2.2 g/dL (1.3-4.6); Glucose 143 mg/dL (65-115); Osmolality Calculated 273 mOsm/kg (285-295); Sodium 130 mmol/L (136-145); Total Bilirubin 0.5 mg/dL (0.15-1.2); Total Protein 6.6 g/dL (6.6-8.7); Troponin(5th) Baseline 12 ng/L (0-10)
[2020-08-05 12:03] LABS: Anion Gap 16.1 (5-19); Potassium 4.1 mmol/L (3.5-5.1)
--- NOTE | 2020-08-05 12:29 | PC.NURSE ---
Report given to Rosita MAHONEY.
--- NOTE | 2020-08-05 13:20 | PM.HP ---
Providers/Chief Complaint Admitting Physician: Varun Dolan MD Primary Care Provider: Lennox Nice MD Chief Complaint: SYNCOPE History of Present Illness Marie Becker is a 74 year old female with past medical history of stroke, hypertension who presented to the emergency department after having a syncopal episode. The patient had been feeling well up until approximately a week ago when she had a syncopal episode while sitting in a chair at home. She was admitted for further observation and no significant underlying finding was discovered, so she was discharged home as she felt well. The patient had another episode this morning. The patient seems to be a poor historian as she feels that the syncopal episode happened at approximately 1:00 in the afternoon, however it was only 1245 when I saw her. According to ER documentation, the patient was sitting when she passed out and her family member was with her. She did not seize. She regained consciousness on her own. The patient states that she felt it coming on and like she was lightheaded and then passed out. The patient denies any chest pains, chest pressure, shortness of breath, fever, nausea, vomiting, diarrhea, constipation, dysuria. Upon review of the patient's medical history, it appears that her blood pressures are relatively labile and will be quite elevated, followed by quite low. While was examining the patient and listening to her heart and carotid arteries, she had a run of ventricular tachycardia that was 17 beats in duration. The patient denied having any dizziness or chest pains with this. Medications/Allergies Home Medications Medication Instructions Recorded Confirmed Last Taken Type Vitamin C 1 tab PO DAILY 08/01/20 08/03/20 Unknown History atorvastatin 10 mg PO DAILY 08/01/20 08/03/20 08/02/20 History clopidogrel 75 mg PO DAILY 08/01/20 08/03/20 08/03/20 History cyanocobalamin (vitamin B-12) 1,000 mcg PO DAILY 08/01/20 08/03/20 08/03/20 History [Vitamin B-12] hydrochlorothiazide 25 mg PO DAILY 08/01/20 08/03/20 08/03/20 History lisinopril 40 mg PO BID 08/01/20 08/03/20 08/03/20 History metoprolol tartrate 100 mg PO BID 08/01/20 08/03/20 08/03/20 History multivitamin [Multiple Vitamins] 1 tab PO DAILY 08/01/20 08/03/20 Unknown History hydralazine 25 mg PO TID #0 tab 08/03/20 08/03/20 08/03/20 Rx Allergies Allergy/AdvReac Type Severity Reaction Status Date / Time No Known Allergies Allergy Verified 08/01/20 14:53 PFSH Acute PFSH: Medical History (Updated 08/05/20 @ 13:25 by Varun Dolan MD) History of stroke HTN (hypertension) Hypokalemia Hyponatremia Syncope Social History (Updated 08/05/20 @ 13:26 by Varun Dolan MD) Smoking and tobacco status: never smoked Alcohol intake: never Lives independently: No (Patient states that she lives with her sister and brother sometimes.) Marital status: / Vitals/I&O/Wt Last Vital Signs Temp 97.7 F 08/05/20 11:03 Pulse 59 L 08/05/20 12:32 Resp 16 08/05/20 12:32 BP 109/47 08/05/20 12:32 Pulse Ox 100 08/05/20 12:32 Weight last 48 hrs Weight 160 lb Physical Exam Narrative: EXAM NARRATIVE: General: Alert, in no acute distress Eyes: PERRLA, EOMI Mouth: Mucous membranes moist without lesions Cardiac: Regular rate and rhythm with a run of V. tach. No murmurs noted. No significant carotid bruits noted Abdomen: Soft, nontender, no hepatosplenomegaly noted. Extremities: Trace edema in the bilateral lower extremities Data : 08/05/20 10:50 08/05/20 10:50 A&P Assessment and plan (1) Syncope: Status: Acute (2) Hypertension: Status: Acute (3) Ventricular tachycardia by electrocardiogram: Status: Acute Additional A&P Information 1. Syncope -the patient has now had 2 syncopal episodes in the last week. The underlying cause has not yet been determined, however she did have a run of ventricular tachycardia while I was examining her. She was asymptomatic with it, however this could be the underlying cause of her syncope. I will have cardiology evaluate the patient and provide recommendations. The patient also has labile blood pressures and it is possible that the hydralazine dose is too much. The patient was taking hydralazine 50 mg 3 times daily, lisinopril 40 mg twice daily, metoprolol tartrate 100 mg twice daily, hydrochlorothiazide 25 mg daily. For now I will hold the hydralazine as her blood pressure is soft. Further adjustments may be made by cardiology. 2. Run of ventricular tachycardia -I am concerned that this may be the underlying cause of her syncopal episodes. I have called family to discuss her CODE STATUS. I am not certain that the patient is well oriented. I will try and confirm this with family members. 3. Labile blood pressures -the patient has hypertension. Hydralazine for now. Further recommendations per cardiology. 4. History of CVA -the patient has a history of a CVA and I am concerned that this may be affecting her memory. I am not familiar with this patient prior to today. In prior documentation in the ER the patient was not aware that there was a pandemic going on. This is certainly concerning for underlying memory issues. 5. Prophylaxis -Lovenox Attestations Medical Necessity Statement*: Patient is currently here under observation, however we will possibly change this depending on her course. Coding Level of Care Code Acute Entry Level Account Representative for Hannah Wray Diagnoses Syncope R55 Hypertension I10 Ventricular tachycardia by electrocardiogram I47.2
[2020-08-05 13:57] LABS: Troponin 5 2HR 10.64 ng/L (0-10)
[2020-08-05 13:59] LABS: Troponin 5 2HR Delta -1.36 ABS# (0-10)
[2020-08-05 14:14] LABS: Magnesium 2.1 mg/dL (1.7-2.3); Phosphorus 3.7 mg/dL (2.5-4.5)
--- NOTE | 2020-08-05 15:55 | P.CONIM_ITS ---
Providers/Reason For Consult Consulting Physican/Specialty*: Dr. Gardner, cardiology Reason for Consult*: Syncope Attending Physician: Varun Dolan MD Primary Care Provider: Lennox Nice MD History of Present Illness History of Present Illness Marie Becker is a 74 year old female with past medical history of stroke (lacunar stroke in left thalamus, 15 July 2019), hypertension who was just hospitalized on - 03 August for syncopal episode with negative work-up. She presented again the same day and stayed in the ER for couple of hours and was discharged home. Earlier today she had another episode of syncope. Patient is not a great historian and history was obtained from chart as well as from her sister Kat. Her sister has whose house is in [place] and they tend to stay together mostly here or in [place]. She states that all these episodes happened while she was sitting. On first and third occasion she was in the chair and the episodes happened about an hour after taking her morning medications. In her second visit she was still in her car while they were driving around town when she had this episode. On first occasion she felt dizzy and sick to her stomach and on second and third occasions she felt dizzy just before passing out for a few seconds. This was witnessed and seems like she did not have any seizure episode, bowel or bladder incontinence. She has had no chest pain shortness of breath fever chills or any sick contacts (COVID positive or otherwise). Orthostatic vitals were done which was found to be negative. Seems like at the time of evaluation she had a run of nonsustained ventricular tachycardia 17 beat long. This episode however was not associated with any symptoms of chest pain or dizziness. Chest X-ray on arrival without any acute findings. Carotid duplex <50% bilateral stenosis. CT head did not show any acute abnormality. He denies any previous history of CAD or [place]. She denies any prior stress testing. Review of Systems General: Reports: 10 or more systems reviewed and unremarkable except in HPI and below Const: Denies: fever(s), chills, body aches, change in appetite or diaphoresis ENMT: Denies: nasal congestion Card: Denies: palpitations, edema, swelling of feet/ankles, dyspnea on exertion, orthopnea or leg pain with exertion Resp: Denies: dyspnea, productive cough, wheezing or pain on inspiration GI: Denies: abdominal pain, nausea, vomiting, diarrhea, constipation, change in bowel habits or hematochezia : Denies: flank pain, dysuria, urinary frequency, urinary urgency or hematuria Musc: Denies: back pain, extremity pain or extremity swelling Neuro: Denies: headache(s), difficulty walking or confusion Psych: Reports: memory loss; Denies: anxiety or depression Ziyad/Lymph: Denies: petechiae or purpura Meds/Allergies Home Medications and Allergies Home Medications Medication Instructions Recorded Confirmed Last Taken Type Vitamin C 1 tab PO DAILY 08/01/20 08/05/20 08/05/20 09:00 History cyanocobalamin (vitamin B-12) 1,000 mcg PO DAILY 08/01/20 08/05/20 08/05/20 09:00 History [Vitamin B-12] hydrochlorothiazide 25 mg PO DAILY 08/01/20 08/05/20 08/05/20 09:00 History lisinopril 40 mg PO BID 08/01/20 08/05/20 08/05/20 09:00 History multivitamin [Multiple Vitamins] 2 tab PO DAILY 08/01/20 08/05/20 08/05/20 09:00 History hydralazine 25 mg PO TID #0 tab 08/03/20 08/05/20 08/05/20 09:00 Rx Allergies Allergy/AdvReac Type Severity Reaction Status Date / Time No Known Allergies Allergy Verified 08/01/20 14:53 PFSH Acute PFSH: Medical History (Updated 08/05/20 @ 16:02 by Sherri Gardner MD) History of stroke HTN (hypertension) Hypokalemia Hyponatremia Syncope Social History Smoking and tobacco status: never smoked Alcohol intake: never Lives independently: No (Patient states that she lives with her sister and brother sometimes.) Marital status: / Vitals/I&O/Wt Last Vital Signs Temp 97.7 F 08/05/20 11:03 Pulse 66 08/05/20 13:30 Resp 19 H 08/05/20 13:30 BP 96/56 08/05/20 13:30 Pulse Ox 94 08/05/20 13:30 Weight last 48 hrs Weight 160 lb Physical Exam Const: COMMON NORMALS: patient oriented x3 HENMT: COMMON NORMALS: normocephalic, atraumatic, hearing grossly normal bilaterally and external ears normal HEAD & SCALP: normocephalic and atraumatic EXTERNAL EAR: Yes external ears normal Eye: COMMON NORMALS: no scleral icterus GENERAL EYE: appearance normal, both eyes and all related structures Chest: COMMONS NORMALS: normal inspection of the chest and normal palpation of entire chest wall CHEST: Yes Symmetrical chest wall rise Resp: COMMON NORMALS: normal respiratory effort, No retractions, No use of accessory muscles and clear to auscultation bilaterally EFFORT & INSPECTION: Yes symmetric chest movement AUSCULTATION: clear to auscultation bilaterally Cardio: COMMON NORMALS: regular rate, regular rhythm, S1 normal heart sound present, S2 normal heart sound present, No gallops present (Cardio), No murmurs present (Cardio), No rub (Cardio) and Peripheral pulses 2+ throughout RATE: regular rate RHYTHM: regular rhythm HEART SOUNDS: S1 normal heart sound present and S2 normal heart sound present PERIPHERAL PULSES: Peripheral pulses 2+ throughout GI: COMMON NORMALS: Normal to inspection, nondistended, normoactive bowel sounds present, Soft to palpation, non-tender, No hepatosplenomegaly present and no masses AUSCULTATION: Yes normoactive bowel sounds PALPATION: Yes Soft to palpation and Yes No hepatosplenomegaly present RECTAL EXAM: deferred Extremity: COMMON NORMALS: no clubbing, cyanosis or edema and no pedal edema Neuro: COMMON NORMALS: patient oriented x3 Psych: COMMON NORMALS: mental status grossly normal, cooperative and speech normal SPEECH: Yes normal speech MOOD & AFFECT: Yes euthymic mood Skin: COMMON NORMALS: no rashes or lesions noted GENERAL SKIN EXAM: no flaquito hes or lesions noted Data Imaging^: Echo: Radiologist's impression: # TTE (08/02/20) CONCLUSIONS Normal left ventricular size and systolic function, EF 55%. Mild left ventricular hypertrophy. No regional wall motion abnormalities. Grade I/IV diastolic dysfunction (abnormal relaxation filling pattern), normal to mildly elevated filling pressures. Mild mitral valve regurgitation. Normal PA pressure Mildly increased left atrial size. There is no pericardial effusion. There are no intracardiac masses. Compared to the previous study from 07/28/2019, there may not be a significant change EKG^: EKG 1: I personally reviewed and interpreted this EKG as follows: My Interpretation: SINUS BRADYCARDIA BORDERLINE LEFT AXIS DEVIATION [QRS AXIS < -20] LEFT VENTRICULAR HYPERTROPHY AND ST-T CHANGE [VOLTAGE CRITERIA PLUS ST/T ABNORMALITY] No previous ECG available for comparison A&P Assessment and plan (1) Syncope: Unclear etiology; she is on multiple antihypertensives lisinopril 40 mg twice daily hydrochlorothiazide 25 mg daily hydralazine 50 mg 3 times daily, spironolactone 25 mg daily (daughter [address] Nice). From ER spironolactone was stopped and hydralazine was decreased to 25 mg 3 times a day. -Agree with holding hydralazine completely and decreasing lisinopril to 40 mg daily. -Continue to closely monitor blood pressure and telemetry while in the hospital. -I will consider doing a event monitor on discharge. Status: Acute (2) Hypertension: Blood pressure has been all over the place. Continue to monitor closely. Status: Acute (3) NSVT (nonsustained ventricular tachycardia): Continue metoprolol. Status: Acute Additional A&P Information Hyponatremia Elevated liver enzymes History of CVA Early dementia/cognitive impairment Thank you for allowing me to participate in patient's care. Please feel free to call with questions or concerns. Consult Attestations Medical Necessity Statement: As per primary team Coding Level of Care Code New Pt Acute Fertilizer Processing Supervisor for Hannah Wray Patient Type New History Comprehensive Exam Comprehensive Medical Decision Making Moderate Complexity Diagnoses Syncope R55 Hypertension I10 NSVT (nonsustained ventricular tachycardia) I47.2 Time Spent (min) 35
--- NOTE | 2020-08-05 17:33 | ECG_ITS ---
[facility] Test Date: 2020-08-05 Pat Name: Marie Becker Department: Room: 104 Gender: Female Accounting Representative: : 1945 Requested By: Wally Nova Order Number: [id number] Javan MD: Sherri Gardner M.D. Measurements Intervals [place] Rate: 61 P: 25 AR: 154 QRS: -10 QRSD: 100 T: -9 QT: 405 QTc: 409 Interpretive Statements SINUS RHYTHM MINIMAL VOLTAGE CRITERIA FOR LVH, CONSIDER NORMAL VARIANT [MEETS CRITERIA IN ONE OF: R(aVL), S(V1), R(V5), R(V5/V6)+S(V1)] NONSPECIFIC ST & T-WAVE ABNORMALITY Compared to ECG 08/05/2020 11:09:38 T-wave abnormality now present Sinus bradycardia no longer present ST (T wave) deviation no longer present Electronically Signed On 08-05-2020 18:02:38 CDT by Sherri Gardner M.D. [id number]
[2020-08-05 17:41] LABS: Troponin 5 6HR 9.73 ng/L (0-10)
[2020-08-05 17:42] LABS: Troponin 5 6HR Delta -2.27 ng/L (0-12)
[2020-08-06] VITALS (7 sets, daily range): BP systolic 118–152; BP diastolic 57–95; PULSE 60–100; RESP 14–22; TEMP 36.6–36.9; O2SAT 96–99
--- NOTE | 2020-08-06 00:59 | PC.NURSE ---
Patient awake lying in bed watching tv. Patient denies any lightheadedness or dizziness at this time. Patient is pleasant and cooperative. One on One sitter remains at bedside. No distresses observed.
[2020-08-06 05:35] LABS: Basophils % 0.5 %; Eosinophils # 0.1 10^3/uL (0.0-0.8); Eosinophils % 1.4 %; Hematocrit 39.5 % (37.0-47.0); Hemoglobin 13.4 g/dL (11.5-15.3); Lymphocytes # 1.4 10^3/uL (0.8-4.8); Lymphocytes % 22.1 %; Mean Corpuscular HGB Conc 33.9 g/dL (30.0-36.0); Mean Corpuscular Hemoglobin 30.7 pg (28.0-34.0); Mean Corpuscular Volume 90.6 fL (81-99); Mean Platelet Volume 10.9 fL (7.4-10.4); Monocytes # 0.6 10^3/uL (0.2-0.9); Monocytes % 8.9 %; Neutrophils # 4.25 10^3/uL (1.8-7.7); Neutrophils % 66.8 %; Nucleated Red Blood Cells % 0 %; Platelet Count 267 10^3/cmm (130-400); Red Blood Count 4.36 10^6/uL (4.1-5.3); Red Cell Distribution Width 12.3 % (12.1-15.1); White Blood Count 6.4 10^3/uL (4.0-10.0)
[2020-08-06 06:09] LABS: Alanine Aminotransferase 42 U/L (0-33); Albumin Level 4.4 g/dL (3.5-5.2); Alkaline Phosphatase 93 IU/L (35-105); Anion Gap 14.2 (5-19); Aspartate Amino Transferase 28 U/L (0-32); Blood Urea Nitrogen 11 mg/dL (8-23); Calcium 9.7 mg/dL (8.5-10.5); Carbon Dioxide 26 mmol/L (22-29); Chloride 93 mmol/L (98-107); Creatinine Clr Calc Pharmacy 55.8072; Globulin 2.6 g/dL (1.3-4.6); Glucose 105 mg/dL (65-115); Magnesium 2.1 mg/dL (1.7-2.3); NT Pro B Type Natriuretic Pept 220 pg/mL (0-450); Osmolality Calculated 270 mOsm/kg (285-295); Phosphorus 3.6 mg/dL (2.5-4.5); Potassium 3.2 mmol/L (3.5-5.1); Sodium 130 mmol/L (136-145); Total Bilirubin 0.4 mg/dL (0.15-1.2)
--- NOTE | 2020-08-06 08:13 | PM.PN ---
Subjective Subjective: Interval history: The patient has had no further episodes of syncope overnight. She has had no further episodes of ventricular tachycardia. Patient did become quite confused and pulled off her monitor for a period of time. She had to have a sitter as well. This morning the patient denies any chest pains, shortness of breath, abdominal pain, nausea, vomiting, diarrhea, constipation. Vitals/I&O/Wt Last Vital Signs Temp 98 F 08/06/20 04:00 Pulse 60 08/06/20 04:00 Resp 22 H 08/06/20 04:00 BP 133/67 08/06/20 04:00 Pulse Ox 97 08/06/20 04:00 08/05/20 08/06/20 08/06/20 22:59 06:59 14:59 Intake Total 240 / 240 150 / 390 Balance 240 / 240 150 / 390 Weight last 48 hrs Weight 160 lb Physical Exam Narrative: EXAM NARRATIVE: General: Alert, in no acute distress, not oriented to time or place Eyes: PERRLA, EOMI Cardiac: Regular rate and rhythm without murmurs noted. No significant carotid bruits noted Abdomen: Soft, nontender, no hepatosplenomegaly noted. Extremities: Trace edema in the bilateral lower extremities Data : 08/06/20 04:39 08/06/20 04:39 A&P Assessment and plan (1) Syncope: Status: Acute (2) Hypertension: Status: Acute (3) Ventricular tachycardia by electrocardiogram: Status: Acute Additional A&P Information 1. Syncope -the patient has had no further episodes since yesterday. Based on the likely cause, this is either secondary to hypotension from overtreatment of blood pressure medications due to labile blood pressures, versus an underlying irregular rhythm like ventricular tachycardia is noted on the monitor. I will continue to decrease her blood pressure meds for now and further recommendations per cardiology. Depending on her course and recommendations from cardiology, she may be able to be discharged home this afternoon. 2. Run of ventricular tachycardia -this certainly could be the underlying cause of her syncopal episodes. The patient will likely need a cardiac event monitor as an outpatient. Further recommendations per cardiology. 3. Labile blood pressures -the patient has hypertension but her blood pressures have been up and down. The patient has not received any medications for blood pressure since being in the hospital yet her blood pressure readings have been as low as 96/56. Current blood pressure is 133/67. Her pulse has been in the upper 50s and low 60s. For now I will hold her metoprolol and continue the lisinopril and hydrochlorothiazide pending recommendations from cardiology. 4. History of CVA -the patient has a history of a CVA and I am concerned that this may be affecting her memory. I am not familiar with this patient prior to this admission. In prior documentation in the ER the patient was not aware that there was a pandemic going on. The patient could not tell me which month or year it is. This is certainly concerning for underlying memory issues. The patient's mother did have Alzheimer's. 5. Prophylaxis -Lovenox Attestations Medical Necessity Statement*: Patient is currently here under observation. Depending on her course today she may be discharged, however I will await recommendations from cardiology first. Coding Level of Care Code Acute Motor Brakeman for Hannah Wray Diagnoses Syncope R55 Hypertension I10 Ventricular tachycardia by electrocardiogram I47.2
[2020-08-06] MEDS: multivitamin therapeutic Tablet 2 TAB PO (08:35)
[2020-08-06] MEDS: potassium chloride ER 10 mEq Tablet 40 MEQ PO (08:35)
[2020-08-06] MEDS: lisinopril 20 mg Tablet 40 MG PO (08:36)
[2020-08-06] MEDS: hydroCHLOROthiazide 25 mg Tablet PO (08:36)
[2020-08-06] MEDS: metoprolol succinate ER (24 HR) 25 mg Tablet PO (10:02)
--- NOTE | 2020-08-06 13:27 | P.PN_ITS ---
Subjective Subjective: Interval history: No syncopal episodes, another 4 beat run of NSVT. Denies having any dizziness or presyncopal episodes. No chest pain or shortness of breath. Medications: Reviewed: Yes Medication Review Details: Current Medications Acetaminophen (Tylenol) 650 mg PO Q6H PRN PRN Reason: Mild/Mod Pain Or Temp >/= 101 Hydrochlorothiazide (Hctz) 25 mg PO DAILY [facility] Last Admin: 08/06/20 08:36 Dose: 25 mg Documented by: Lisinopril (Prinivil) 40 mg PO DAILY [facility] Last Admin: 08/06/20 08:36 Dose: 40 mg Documented by: Metoprolol Succinate (Toprol Xl) 25 mg PO DAILY [facility] Last Admin: 08/06/20 10:02 Dose: 25 mg Documented by: Multivitamins Therapeutic (Multivitamin Tab) 2 tab PO DAILY [facility] Last Admin: 08/06/20 08:35 Dose: 2 tab Documented by: Vitals/I&O/Wt Last Vital Signs Temp 97.8 F 08/06/20 12:00 Pulse 78 08/06/20 12:00 Resp 18 08/06/20 12:00 BP 152/95 08/06/20 12:00 Pulse Ox 99 08/06/20 12:00 08/05/20 08/06/20 08/06/20 22:59 06:59 14:59 Intake Total 240 / 240 150 / 390 120 / 120 Balance 240 / 240 150 / 390 120 / 120 Weight last 48 hrs Weight 160 lb Physical Exam Const: COMMON NORMALS: patient oriented x3 HENMT: COMMON NORMALS: normocephalic, atraumatic, hearing grossly normal bilaterally and external ears normal HEAD & SCALP: normocephalic and atraumatic EXTERNAL EAR: Yes external ears normal Eye: COMMON NORMALS: no scleral icterus GENERAL EYE: appearance normal, both eyes and all related structures Chest: COMMONS NORMALS: normal inspection of the chest and normal palpation of entire chest wall CHEST: Yes Symmetrical chest wall rise Resp: COMMON NORMALS: normal respiratory effort, No retractions, No use of accessory muscles and clear to auscultation bilaterally EFFORT & INSPECTION: Yes symmetric chest movement AUSCULTATION: clear to auscultation bilaterally Cardio: COMMON NORMALS: regular rate, regular rhythm, S1 normal heart sound present, S2 normal heart sound present, No gallops present (Cardio), No murmurs present (Cardio), No rub (Cardio) and Peripheral pulses 2+ throughout RATE: regular rate RHYTHM: regular rhythm HEART SOUNDS: S1 normal heart sound present and S2 normal heart sound present PERIPHERAL PULSES: Peripheral pulses 2+ throughout GI: COMMON NORMALS: Normal to inspection, nondistended, normoactive bowel sounds present, Soft to palpation, non-tender, No hepatosplenomegaly present and no masses AUSCULTATION: Yes normoactive bowel sounds PALPATION: Yes Soft to palpation and Yes No hepatosplenomegaly present RECTAL EXAM: deferred Extremity: COMMON NORMALS: no clubbing, cyanosis or edema and no pedal edema Neuro: COMMON NORMALS: patient oriented x3 Psych: COMMON NORMALS: mental status grossly normal, cooperative and speech normal SPEECH: Yes normal speech MOOD & AFFECT: Yes euthymic mood Skin: COMMON NORMALS: no rashes or lesions noted GENERAL SKIN EXAM: no rashes or lesions noted Data : 08/06/20 04:39 08/06/20 04:39 A&P Assessment and plan (1) Syncope: I think the most likely etiology here is being on multiple antihypertensives and rapid fluctuations in her blood pressure. She receives help from her sister but with some contribution of cognitive impairment/early dementia. However she has had at least 2 runs of NSVT she is on multiple antihypertensives lisinopril 40 mg twice daily hydrochlorothiazide 25 mg daily hydralazine 50 mg 3 times daily, spironolactone 25 mg daily (daughter [address] Nice). -From ER spironolactone was stopped and hydralazine was decreased to 25 mg 3 times a day. -Agree with holding hydralazine completely and decreasing lisinopril to 40 mg daily. -Continue to closely monitor blood pressure and telemetry while in the hospital. -I will plan to doing a event monitor on discharge possibly tomorrow. Status: Acute (2) Hypertension: Blood pressure has been all over the place. Continue to monitor closely. Status: Acute (3) NSVT (nonsustained ventricular tachycardia): Continue metoprolol succinate 50 mg daily Status: Acute Additional A&P Information Hyponatremia: I think I will hold off on HCTZ and increase metoprolol succinate to 50 mg daily Hypokalemia- replaced Elevated liver enzymes History of CVA Early dementia/cognitive impairment Thank you for allowing me to participate in patient's care. Please feel free to call with questions or concerns. Attestations Medical Necessity Statement*: Needs hospital stay for medication changes and syncope and BP management. Coding Level of Care Code Acute Outdoor Landscape Architect for Hannah Fwd Diagnoses Syncope R55 Hypertension I10 NSVT (nonsustained ventricular tachycardia) I47.2
[2020-08-06] MEDS: acetaminophen 325 mg Tablet 650 MG PO (20:00)
[2020-08-07] VITALS: BP 132/65; PULSE 74; RESP 16; TEMP 36.9; O2SAT 96
[2020-08-07 04:00] VITALS: BP 146/75; PULSE 60; RESP 15; TEMP 36.4; O2SAT 100
[2020-08-07 06:34] LABS: Blood Urea Nitrogen 9 mg/dL (8-23); Calcium 9.3 mg/dL (8.5-10.5); Carbon Dioxide 25 mmol/L (22-29); Chloride 98 mmol/L (98-107); Creatinine Clr Calc Pharmacy 55.8072; Glucose 99 mg/dL (65-115); Osmolality Calculated 277 mOsm/kg (285-295); Sodium 134 mmol/L (136-145)
[2020-08-07 06:41] LABS: Anion Gap 14.7 (5-19); Potassium 3.7 mmol/L (3.5-5.1)
[2020-08-07 07:05] VITALS: BP 143/64; PULSE 59; RESP 18; TEMP 36.8; O2SAT 98
[2020-08-07] MEDS: metoprolol succinate ER (24 HR) 50 mg Tablet PO (08:48)
[2020-08-07] MEDS: lisinopril 20 mg Tablet 40 MG PO (08:49)
[2020-08-07] MEDS: multivitamin therapeutic Tablet 2 TAB PO (08:49)
--- NOTE | 2020-08-07 08:56 | PM.PN ---
Subjective Subjective: Interval history: No syncopal episodes, another 4 beat run of NSVT yesterday. Denies having any dizziness or presyncopal episodes. No chest pain or shortness of breath. Medications: Reviewed: Yes Medication Review Details: Current Medications Acetaminophen (Tylenol) 650 mg PO Q6H PRN PRN Reason: Mild/Mod Pain Or Temp >/= 101 Hydrochlorothiazide (Hctz) 25 mg PO DAILY [facility] Last Admin: 08/06/20 08:36 Dose: 25 mg Documented by: Lisinopril (Prinivil) 40 mg PO DAILY [facility] Last Admin: 08/06/20 08:36 Dose: 40 mg Documented by: Metoprolol Succinate (Toprol Xl) 25 mg PO DAILY [facility] Last Admin: 08/06/20 10:02 Dose: 25 mg Documented by: Multivitamins Therapeutic (Multivitamin Tab) 2 tab PO DAILY [facility] Last Admin: 08/06/20 08:35 Dose: 2 tab Documented by: Vitals/I&O/Wt Last Vital Signs Temp 98.2 F 08/07/20 07:05 Pulse 59 L 08/07/20 07:05 Resp 18 08/07/20 07:05 BP 143/64 08/07/20 07:05 Pulse Ox 98 08/07/20 07:05 08/06/20 08/07/20 08/07/20 22:59 06:59 14:59 Intake Total 240 / 480 240 / 720 Balance 240 / 480 240 / 720 Weight last 48 hrs Weight 160 lb Physical Exam Const: COMMON NORMALS: patient oriented x3 HENMT: COMMON NORMALS: normocephalic, atraumatic and external ears normal HEAD & SCALP: normocephalic and atraumatic EXTERNAL EAR: Yes external ears normal Eye: COMMON NORMALS: no scleral icterus GENERAL EYE: appearance normal, both eyes and all related structures Chest: COMMONS NORMALS: normal inspection of the chest and normal palpation of entire chest wall CHEST: Yes Symmetrical chest wall rise Resp: COMMON NORMALS: clear to auscultation bilaterally EFFORT & INSPECTION: Yes symmetric chest movement AUSCULTATION: clear to auscultation bilaterally Cardio: COMMON NORMALS: regular rate, regular rhythm, S1 normal heart sound present, S2 normal heart sound present and Peripheral pulses 2+ throughout RATE: regular rate RHYTHM: regular rhythm HEART SOUNDS: S1 normal heart sound present and S2 normal heart sound present PERIPHERAL PULSES: Peripheral pulses 2+ throughout GI: COMMON NORMALS: Soft to palpation and No hepatosplenomegaly present AUSCULTATION: Yes normoactive bowel sounds PALPATION: Yes Soft to palpation and Yes No hepatosplenomegaly present RECTAL EXAM: deferred Extremity: COMMON NORMALS: no clubbing, cyanosis or edema and no pedal edema Neuro: COMMON NORMALS: patient oriented x3 Psych: COMMON NORMALS: mental status grossly normal, cooperative and speech normal SPEECH: Yes normal speech MOOD & AFFECT: Yes euthymic mood Skin: COMMON NORMALS: no rashes or lesions noted GENERAL SKIN EXAM: no rashes or lesions noted Data : 08/06/20 04:39 08/07/20 04:59 A&P Assessment and plan (1) Syncope: I think the most likely etiology here is being on multiple antihypertensives and rapid fluctuations in her blood pressure. She receives help from her sister but with some contribution of cognitive impairment/early dementia. However she has had at least 2 runs of NSVT. she is on multiple antihypertensives lisinopril 40 mg twice daily hydrochlorothiazide 25 mg daily hydralazine 50 mg 3 times daily, spironolactone 25 mg daily (daughter [address] Nice). -From ER spironolactone was stopped and hydralazine was decreased to 25 mg 3 times a day. -Agree with holding hydralazine completely and decreasing lisinopril to 40 mg daily. -Continue to closely monitor blood pressure and telemetry while in the hospital. She was advised to ambulate today to assess her symptoms. -I will plan to doing a event monitor for 2 weeks on discharge (to be fitted on her way home). May go home today. -Follow up with me in 3-4 weeks Status: Acute (2) Hypertension: Blood pressure has improved. Continue to closely monitor at home. Status: Acute (3) NSVT (nonsustained ventricular tachycardia): Continue metoprolol succinate 50 mg daily Status: Acute Additional A&P Information Hyponatremia: I think I will hold off on HCTZ and increase metoprolol succinate to 50 mg daily Hypokalemia- replaced Elevated liver enzymes History of CVA Early dementia/cognitive impairment Thank you for allowing me to participate in patient's care. Please feel free to call with questions or concerns. Attestations Medical Necessity Statement*: stable to be discharged home today. Coding Level of Care Code Acute Security Guard for Chg Fwd Diagnoses Syncope R55 Hypertension I10 NSVT (nonsustained ventricular tachycardia) I47.2
[2020-08-07 09:50] LABS: Alanine Aminotransferase 33 U/L (0-33); Albumin Level 3.9 g/dL (3.5-5.2); Alkaline Phosphatase 79 IU/L (35-105); Globulin 1.7 g/dL (1.3-4.6); Total Bilirubin 0.3 mg/dL (0.15-1.2); Total Protein 5.6 g/dL (6.6-8.7)
[2020-08-07 10:07] LABS: Aspartate Amino Transferase 21 U/L (0-32)
[2020-08-07 10:50] VITALS: BP 136/81; PULSE 75; RESP 15; TEMP 36.7; O2SAT 96
--- NOTE | 2020-08-07 11:51 | P.DS_ITS ---
Discharge Providers Date of Admission: 08/05/20 12:15 Date of Discharge: August 07, 2020 Attending Provider at Admission: Varun Dolan MD Attending Provider at Discharge: Lennox Nice MD Primary Care Provider: Lennox Nice MD Diagnoses at Discharge Discharge Diagnosis (1) Syncope: Status: Acute (2) Hypertension: Status: Acute (3) NSVT (nonsustained ventricular tachycardia): Status: Acute Reason for Visit Reason for Visit: SYNCOPE Hospital Course Discharge Summary: Patient is admitted to the hospital for syncopal episode. She has been in the ER couple of times for this. She denied any chest pain or increasing shortness of breath. She does have some dementia and baseline confusion. Her blood pressure has been running significantly high in the clinic. She has had her medications increased due to this. Her sister lives with her and helps her with her medications. I spoke with her son Paco and they are very confident she has been getting her medications as prescribed. It is unclear why she is all of a sudden having lower blood pressures now. She had hydralazine and hydrochlorothiazide stopped while in the hospital. Lisinopril was reduced to 40 mg once a day. Metoprolol was increased to 50 mg once a day. She had some short runs of SVT noted on telemetry. No symptoms associated with this though. 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 She will follow-up with me in 2 to 3 days for follow-up on her blood pressure. Discharge Data Data Completed and Pending: Completed Studies During Hospitalization Category Date Time Status XR chest 1V duy ble [id number] Stat Exams 08/05/20 11:33 Completed Labs from last 24 hours 08/07/20 08/07/20 04:59 04:59 Sodium 134 L Potassium 3.7 Chloride 98 Carbon Dioxide 25 Anion Gap 14.7 BUN 9 Creatinine 0.5 GFR Calculation Not Reportable Glucose 99 Calculated Osmolal ity 277 L Calcium 9.3 Magnesium 2.0 Total Bilirubin 0.3 Direct Bilirubin 0.20 AST 21 ALT 33 Alkaline Phosphata se 79 Total Protein 5.6 L Albumin 3.9 Globulin 1.7 Vitals: Last Vital Signs Temp 98.1 F 08/07/20 10:50 Pulse 75 08/07/20 10:50 Resp 15 08/07/20 10:50 BP 136/81 08/07/20 10:50 Pulse Ox 96 08/07/20 10:50 Discharge Plan Discharge Patient Disposition: Home Condition: Stable Prescriptions: New lisinopril 20 mg Tablet 40 mg PO DAILY Qty: 30 RF: 0 metoprolol succinate 50 mg Tablet Extended Release 24 Hr 50 mg PO DAILY Qty: 30 RF: 0 Continued multivitamin [Multiple Vitamins] Tablet 2 tab PO DAILY RF: 0 cyanocobalamin (vitamin B-12) [Vitamin B-12] 1,000 mcg Tablet 1,000 mcg PO DAILY RF: 0 Vitamin C 1 tab PO DAILY RF: 0 Discontinued hydrochlorothiazide 25 mg tablet 25 mg PO DAILY RF: 0 lisinopril 40 mg tablet 40 mg PO BID RF: 0 hydralazine 50 mg tablet 25 mg PO TID Qty: 0 RF: 0 Discharge Orders: Discharge Order (Routine); Ordered 08/07/20 Ordered By: Lennox Nice Other Ambulatory Orders: [place] 2 week event monitor (Routine) Timeframe: 1 Day Facility: [facility] - Location: Cardiac Diagnostic Laboratory Ordered By: Sherri Gardner Referrals: Lennox Nice MD [Primary Care Provider] - (You have a hospital followup with Dr. Nice at [facility] on , August 10 at 11:20am.) Discharge Diet: Usual diet Discharge Activity: Resume usual activity Activity Restrictions/Additional Instructions: -We are concerned that your passing out episodes may be from either an abnormal heart rhythm or your blood pressure medications. -You should have a heart monitor placed for the next 21 days after your discharge from the hospital. If you have any passing out episodes you need to record the day and time to correlate with the monitor. -We have stopped several of your blood pressure medications. Currently we will have you taking lisinopril 40 mg at night and metoprolol 50 mg in the morning. Continue to monitor your blood pressure 2-3 times a day. -Call if increasing chest pain or shortness of breath, or syncopal episodes -Follow-up with Dr. Dietz in 2 to 3 days. Discharge Attestations Time Spent in Discharge Care*: greater than 30 min Status at Discharge: Cognitive status at discharge: cognitively intact , Behavioral status at discharge: cooperative , Quality Metrics Clinical Quality Measures During this hospital stay, did patient experience: None Coding Level of Care Code Acute Supervisor Vegetable Farming for Chg Fwd Diagnoses Syncope R55 Hypertension I10 NSVT (nonsustained ventricular tachycardia) I47.2
[2020-08-07 13:35] VITALS: BP 122/63; PULSE 73; RESP 17; O2SAT 97
[2020-08-07 14:02] VITALS: BP 122/63; PULSE 73; RESP 17; O2SAT 97
== END 2020-08-07 14:30 | disposition home or self-care (01) ==
LOC: ER 12:18 → CSU 12:20
PROVIDERS: Family Medicine; Internal Medicine Cardiovascular Disease; Admitting Provider Family Medicine; PCP Family Medicine; Visit Provider Family Medicine
DX: R55 Syncope and collapse (principal); I10 Essential (primary) hypertension; I47.2 Ventricular tachycardia; Z86.73 Personal history of transient ischemic attack (TIA), and cerebral infarction without residual deficits; E87.1 Hypo-osmolality and hyponatremia; E87.6 Hypokalemia; F03.90 Unspecified dementia, unspecified severity, without behavioral disturbance, psychotic disturbance, mood disturbance, and anxiety
CPT/HCPCS: 12345; 36415; 71045; 80048; 80053; 80076; 82550; 83735; 83880; 84100; 84484; 85025; 93005; 99283; 99285; G0378

== ENCOUNTER 2020-09-28 13:38 | Emergency (ER) | payer BC, SELFPAY ==
[2020-09-28 13:40] VITALS: BP 150/65; PULSE 66; RESP 16; TEMP 36.8; O2SAT 98; BMI 25.0
--- NOTE | 2020-09-28 13:43 | ECG_ITS ---
[facility] Test Date: 2020-09-28 Pat Name: Marie Becker Department: Room: Gender: Female Swatch Clerk: : 1945 Requested By: Chuckie Cole Order Number: [id number] Javan MD: Brandt Davis M.D. Measurements Intervals [place] Rate: 63 P: 40 WV: 149 QRS: -27 QRSD: 98 T: 31 QT: 411 QTc: 422 Interpretive Statements SINUS RHYTHM LEFT VENTRICULAR HYPERTROPHY AND ST-T CHANGE [VOLTAGE CRITERIA PLUS ST/T ABNORMALITY] Compared to ECG 08/05/2020 16:22:48 ST (T wave) deviation now present T-wave abnormality no longer present Electronically Signed On 09-28-2020 17:18:12 RADAR SYSTEMS ENGINEER by Brandt Davis M.D. [email or web address]
[2020-09-28 13:48] VITALS: BP 150/65; PULSE 61; RESP 18; O2SAT 98
--- NOTE | 2020-09-28 13:48 | W.ED.SYNCOPE ---
HPI - Syncope General: Chief Complaint: Syncope Stated Complaint: SYNCOPE/ FALL Time Seen by Provider: 09/28/20 13:43 Source: patient Mode of arrival: ambulatory Limitations: no limitations History of Present Illness: HPI narrative: 74-year-old female who states she was eating today and had a syncopal event. She has had multiple syncopal events in the past. She states she just sitting eating and passed out. She denies any headache or chest pain before or after the event. She denies any vomiting or diarrhea. States she feels fine currently and her blood pressure here is normal. She did to start 2 new blood pressure meds but does not know what her blood pressure was earlier today. Associated symptoms: Deny abdominal pain, fever(s), headache(s) or nausea Review of Systems Const: Denies: fever(s), chills, body aches or change in appetite Eyes: Denies: blurry vision or eye discomfort ENMT: Denies: throat pain or dental pain Card: Reports: syncope Resp: Denies: dyspnea GI: Denies: abdominal pain, nausea, vomiting or diarrhea : Denies: dysuria Musc: Denies: neck pain or back pain Skin/Breast: Denies: rash Neuro: Denies: headache(s) Psych: Denies: depression Ziyad/Lymph: Denies: easy bruising All/Imm: Denies: urticaria PFSH ED PFSH: Medical History History of stroke HTN (hypertension) Hypokalemia Hyponatremia Syncope Ventricular tachycardia by electrocardiogram Social History Smoking and tobacco status: never smoked Alcohol intake: never Lives independently: No (Patient states that she lives with her sister and brother sometimes.) Marital status: / Physical Exam Const: COMMON NORMALS: no acute distress, patient oriented x3 and healthy appearing HENMT: COMMON NORMALS: normocephalic and atraumatic HEAD & SCALP: normocephalic and atraumatic Eye: COMMON NORMALS: Equal, round and reactive pupils present and EOMs intact bilaterally PUPIL: Yes Equal, round and reactive pupils present Neck/C-Spine: COMMON NORMALS: full ROM and supple Chest: COMMONS NORMALS: normal inspection of the chest and normal palpation of entire chest wall Resp: COMMON NORMALS: normal respiratory effort, No retractions, No use of accessory muscles and clear to auscultation bilaterally AUSCULTATION: clear to auscultation bilaterally Cardio: COMMON NORMALS: regular rate, regular rhythm and No murmurs present (Cardio) RATE: regular rate RHYTHM: regular rhythm GI: COMMON NORMALS: Normal to inspection, nondistended, normoactive bowel sounds present, Soft to palpation, non-tender and no masses PALPATION: Yes Soft to palpation Extremity: COMMON NORMALS: normal to inspection and full ROM Neuro: COMMON NORMALS: patient oriented x3, moves all extremities and no focal motor deficits Psych: COMMON NORMALS: mental status grossly normal, Normal thought process present and cooperative THOUGHT PROCESS: Normal thought process present Skin: COMMON NORMALS: no rashes or lesions noted and no wounds GENERAL SKIN EXAM: no rashes or lesions noted Course Vital Signs: Vital signs: Vital Signs Temperature 98.3 F 09/28/20 13:40 Pulse Rate 71 09/28/20 15:02 Respiratory Rate 12 09/28/20 15:02 Blood Pressure 123/49 09/28/20 15:02 Pulse Oximetry 96 09/28/20 15:02 MDM - Syncope MDM Narrative: Medical decision making narrative: Marie presents here with a syncopal event. Could be blood pressure related. Her blood pressure here has been stable and she is felt well here. She has had syncopal events in the past. EKG here is normal she has no signs of cardiac cause or pulmonary embolism. I informed her she is to take a log of her blood pressure 3 times a day and to not take her blood pressure medicine if it is low. She is to follow-up with PCP in 3 to 5 days and return if worsening. Lab Data: Labs: Lab Results 09/28/20 09/28/20 Range/Units 13:27 13:27 WBC 5.6 (4.0-10.0) 10^3/ uL RBC 4.04 L (4.1-5.3) 10^6/u L Hgb 12.5 (11.5-15.3) g/dL Hct 37.1 (37.0-47.0) % MCV 91.8 (81-99) fL MCH 30.9 (28.0-34.0) pg MCHC 33.7 (30.0-36.0) g/dL RDW 12.5 (12.1-15.1) % Plt Count 246 (130-400) 10^3/c mm MPV 11.1 H (7.4-10.4) fL Neut % (Auto) 71.6 % Lymph % (Auto) 17.1 % [place] % (Auto) 8.2 % Eos % (Auto) 2.3 % Baso % (Auto) 0.4 % Neut # (Auto) 4.02 (1.8-7.7) 10^3/u L Lymph # (Auto) 1.0 (0.8-4.8) 10^3/u L [place] # (Auto) 0.5 (0.2-0.9) 10^3/u L Eos # (Auto) 0.1 (0.0-0.8) 10^3/u L Baso # (Auto) 0.0 (0.0-0.1) 10^3/u L Nucleated RBC % (a uto) 0 % Nucleated RBCs # 0.0 /100WBC Sodium 141 (136-145) mmol/L Potassium 3.7 (3.5-5.1) mmol/L Chloride 103 (98-107) mmol/L Carbon Dioxide 28 (22-29) mmol/L Anion Gap 13.7 (5-19) BUN 14 (8-23) mg/dL Creatinine 0.7 (0.5-0.9) mg/dL GFR Calculation Not Reportable Glucose 118 H (65-115) mg/dL Calculated Osmolal ity 294 (285-295) mOsm/k g Calcium 9.4 (8.5-10.5) mg/dL Total Bilirubin 0.5 (0.15-1.2) mg/dL AST 22 (0-32) U/L ALT 18 (0-33) U/L Alkaline Phosphata se 105 (35-105) IU/L Total Protein 6.7 (6.6-8.7) g/dL Albumin 4.3 (3.5-5.2) g/dL Globulin 2.4 (1.3-4.6) g/dL EKG Data^: EKG 1: Attestation: I personally reviewed and interpreted this EKG as follows: EKG interpretation date: 09/28/20 EKG interpretation time: 13:56 Interpretation: nsr hr [address] or t wave abnormalities qrs 98 qtc 418 Discharge Plan Discharge Patient Disposition: Home Clinical Impression: Syncope Qualifiers: Syncope type: unspecified Qualified Code(s): R55 - Syncope and collapse Condition: Stable Prescriptions: No Action carvedilol [Coreg] 25 mg tablet 25 mg PO .COMPLEX Qty: 45 RF: 1 lisinopril 20 mg Tablet 40 mg PO DAILY Qty: 30 RF: 0 multivitamin [Multiple Vitamins] Tablet 2 tab PO DAILY RF: 0 cyanocobalamin (vitamin B-12) [Vitamin B-12] 1,000 mcg Tablet 1,000 mcg PO DAILY RF: 0 Vitamin C 1 tab PO DAILY RF: 0 Discharge Orders: Discharge ED (Routine); Ordered 09/28/20 Ordered By: Chuckie Cole Referrals: Lennox Nice MD [Primary Care Provider] - 1-3 days Discharge Diet: Advance as tolerated Discharge Activity: Resume usual activity Patient Instructions: Syncope (ED) Coding Level of Care Code ED Manager Personnel Selection for Chg Fwd Exam Comprehensive
[2020-09-28 14:04] LABS: Basophils % 0.4 %; Eosinophils # 0.1 10^3/uL (0.0-0.8); Eosinophils % 2.3 %; Hematocrit 37.1 % (37.0-47.0); Hemoglobin 12.5 g/dL (11.5-15.3); Lymphocytes % 17.1 %; Mean Corpuscular HGB Conc 33.7 g/dL (30.0-36.0); Mean Corpuscular Hemoglobin 30.9 pg (28.0-34.0); Mean Corpuscular Volume 91.8 fL (81-99); Mean Platelet Volume 11.1 fL (7.4-10.4); Monocytes # 0.5 10^3/uL (0.2-0.9); Monocytes % 8.2 %; Neutrophils # 4.02 10^3/uL (1.8-7.7); Neutrophils % 71.6 %; Nucleated Red Blood Cells % 0 %; Platelet Count 246 10^3/cmm (130-400); Red Blood Count 4.04 10^6/uL (4.1-5.3); Red Cell Distribution Width 12.5 % (12.1-15.1); White Blood Count 5.6 10^3/uL (4.0-10.0)
[2020-09-28 14:23] LABS: Alanine Aminotransferase 18 U/L (0-33); Albumin Level 4.3 g/dL (3.5-5.2); Alkaline Phosphatase 105 IU/L (35-105); Aspartate Amino Transferase 22 U/L (0-32); Blood Urea Nitrogen 14 mg/dL (8-23); Calcium 9.4 mg/dL (8.5-10.5); Carbon Dioxide 28 mmol/L (22-29); Chloride 103 mmol/L (98-107); Globulin 2.4 g/dL (1.3-4.6); Glucose 118 mg/dL (65-115); Osmolality Calculated 294 mOsm/kg (285-295); Sodium 141 mmol/L (136-145); Total Bilirubin 0.5 mg/dL (0.15-1.2); Total Protein 6.7 g/dL (6.6-8.7)
[2020-09-28 14:26] LABS: Anion Gap 13.7 (5-19); Potassium 3.7 mmol/L (3.5-5.1)
[2020-09-28 15:02] VITALS: BP 123/49; PULSE 71; RESP 12; O2SAT 96
[2020-09-28 15:43] VITALS: BP 162/64; PULSE 67; RESP 15; O2SAT 97
[2020-09-28 16:13] VITALS: BP 142/67; PULSE 67; RESP 18; O2SAT 97
== END 2020-09-28 16:17 | disposition home or self-care (01) ==
PROVIDERS: Emergency Provider Emergency Medicine; PCP Family Medicine
DX: R55 Syncope and collapse (principal); Z86.73 Personal history of transient ischemic attack (TIA), and cerebral infarction without residual deficits; I10 Essential (primary) hypertension
CPT/HCPCS: 12345; 80053; 85025; 93005; 99282; 99283

== ENCOUNTER 2021-01-23 09:08 | Outpatient (CLI) | payer BC, SELFPAY ==
--- NOTE | 2021-01-23 09:42 | ECG_ITS ---
[facility] Test Date: 2021-01-23 Pat Name: Marie Becker Department: Room: Gender: Female Caseworker: : 1945 Requested By: Sherri Gardner Order Number: [id number] Javan MD: Sherri Gardner M.D. Interpretive Statements NAME OF STUDY: LEXISCAN SESTAMIBI STRESS TEST INDICATION: Nonsustained ventricular tachycardia PROCEDURE: At the baseline, the blood pressure was 202/102 mmHg with a heart rate of 64 bpm. The electrocardiogram showed normal sinus rhythm with possible old anteroseptal infarct. ST depression noted in inferolateral leads. The Lexiscan was infused over a period of 20 seconds. A total of 0.4 milligrams of Lexiscan was infused. The stress phase was continued for a total of 5 minutes. Heart rate at the end of the stress phase was 91 bpm with a blood pressure 173/93 mmHg. The EKG at the peak infusion revealed 2 mm horizontal to downsloping ST depression in inferolateral leads. Sestamibi was injected 20 seconds after the Lexiscan infusion. Blood pressure at the end of the recovery phase was 179/91 mmHg with a heart rate of 86 beats per minute. CONCLUSION: 1. Equivocal EKG changes with the LexiScan infusion given baseline changes. 2. No LexiScan induced chest pain or cardiac arrhythmia. 3. Baseline hypertension with normal blood pressure and heart rate response. 4. Sestamibi/sestamibi perfusion scan pending; see separate report. Electronically Signed On 01-24-2021 17:22:45 CDT by Sherri Gardner M.D. [email or web address] [facility].[employer]/store/OM/[id number]
--- NOTE | 2021-01-23 09:42 | NMCV_ITS ---
NM dat perf SPECT r/s* [id number] Marie Becker Age: 75 Gender: F : 1945 Exam Date: 01/23/2021 10:53 Ordering Phys: Sherri Gardner MD ([email or web address]) Technologist: SHAGUFTA Malone Exam Location: [facility] Indications: Nonsustained ventricular tachycardia STRESS TEST Please see separate stress [facility] for full findings IMAGE PROTOCOL Rest/Stress 1 Lexiscan Day Radiopharmaceutical Dose (mCi) Administration Site Administered by Rest: Tc-99m 10.6 IV SHAGUFTA Meraz Sestamibi Stress:Tc-99m 32.6 IV SHAGUFTA Meraz Sestamibi Rest: 23-Jan-2021 60 Discovery 630 Stress: 23-Jan-2021 30 Discovery 630 0.4mg Lexiscan. Supine position only as patient was unable to lay prone. SPECT RESULTS Technical Quality: Excellent Raw Data Analysis: Image Corrections: No attenuation or motion correction applied Summed Stress Score: 0 Summed Rest Score: 0 Summed Difference Score: 0 PERFUSION FINDINGS SPECT images demonstrate homogeneous tracer distribution throughout the myocardium. FUNCTIONAL RESULTS (calculated via Gated SPECT) Stress Image LV EF (%): 74 Stress EDV (mL):87 TID: 0.95 Stress ESV (mL):23 FUNCTIONAL FINDINGS: The left ventricle is normal in size. Transient Ischemia Dilatation of 0.95. There is normal left ventricular systolic function. The left ventricular ejection fraction is normal with a value of 74%. There is normal left ventricular wall thickening with no regional wall motion abnormality. Normal end-diastolic and end-systolic volumes. IMPRESSIONS 1. Myocardial perfusion imaging is normal. 2. Overall left ventricular systolic function is normal without regional wall motion abnormalities. 3. The left ventricular ejection fraction is normal with a value of 74%. 4. Scan indicates low risk for cardiac events. 5. No prior similar studies to compare. Sherri Gardner MD (Electronically Signed) Final Date: 24 January 2021 17:28 S
[2021-01-23 10:01] VITALS: BMI 25.7
[2021-01-23] MEDS: regadenoson 0.4 Mg/5 ml Syringe IVP (11:46)
[2021-01-23 12:15] VITALS: BP 179/91; PULSE 84
== END 2021-01-23 09:09 | disposition home or self-care (01) ==
LOC: RAD 09:19 → CDL 09:38
PROVIDERS: PCP Family Medicine; Visit Provider Internal Medicine Cardiovascular Disease
DX: I47.2 Ventricular tachycardia (principal)
CPT/HCPCS: 78452; 93017; A9500; J2785

== ENCOUNTER 2021-02-22 18:45 | Emergency (ER) | payer BC, SELFPAY ==
[2021-02-22 19:54] VITALS: BP 181/97; PULSE 71; RESP 18; TEMP 36.9; O2SAT 99; BMI 25.1
[2021-02-22 23:46] VITALS: BP 177/74; PULSE 65; RESP 15; O2SAT 96
[2021-02-22 23:53] LABS: Basophils % 0.5 %; Eosinophils # 0.1 10^3/uL (0.0-0.8); Eosinophils % 1.7 %; Hematocrit 38.5 % (37.0-47.0); Hemoglobin 12.9 g/dL (11.5-15.3); Lymphocytes # 1.3 10^3/uL (0.8-4.8); Lymphocytes % 19.6 %; Mean Corpuscular HGB Conc 33.5 g/dL (30.0-36.0); Mean Corpuscular Hemoglobin 31.2 pg (28.0-34.0); Mean Corpuscular Volume 93.2 fL (81-99); Mean Platelet Volume 10.7 fL (7.4-10.4); Monocytes # 0.6 10^3/uL (0.2-0.9); Monocytes % 8.3 %; Neutrophils % 69.7 %; Nucleated Red Blood Cells % 0 %; Platelet Count 228 10^3/cmm (130-400); Red Blood Count 4.13 10^6/uL (4.1-5.3); Red Cell Distribution Width 12.6 % (12.1-15.1); White Blood Count 6.6 10^3/uL (4.0-10.0)
[2021-02-23 00:10] LABS: Alanine Aminotransferase 15 U/L (0-33); Albumin Level 4.4 g/dL (3.5-5.2); Alkaline Phosphatase 83 IU/L (35-105); Anion Gap 12.3 (5-19); Aspartate Amino Transferase 18 U/L (0-32); Blood Urea Nitrogen 15 mg/dL (8-23); Calcium 8.9 mg/dL (8.5-10.5); Carbon Dioxide 29 mmol/L (22-29); Chloride 103 mmol/L (98-107); Globulin 2.5 g/dL (1.3-4.6); Glucose 123 mg/dL (65-115); Lipase 63 U/L (13-60); Osmolality Calculated 294 mOsm/kg (285-295); Potassium 3.3 mmol/L (3.5-5.1); Sodium 141 mmol/L (136-145); Total Bilirubin 0.4 mg/dL (0.15-1.2); Total Protein 6.9 g/dL (6.6-8.7)
[2021-02-23 00:36] VITALS: BP 144/98; PULSE 68; RESP 16; O2SAT 97
[2021-02-23 00:48] LABS: Add Urine Microscopic? NO; Charge for UA Resulting for Rev
[2021-02-23 01:02] LABS: Bilirubin Urine Neg (Negative); Blood Urine Neg (Negative); Glucose Urine UA Norm (Normal); Ketones Urine Negative (Negative); Leukocyte Esterase Urine Negative (Negative); Nitrate Urine Negative (Negative); Protein Urine Neg (Negative); Specific Gravity, Urine 1.005 (1.005-1.030); Urine Appearance Clear (CLEAR); Urine Color Yellow (Yellow); Urobilinogen Urine Norm (Negative); pH Urine 7 (5-7)
--- NOTE | 2021-02-23 01:12 | ECG_ITS ---
[facility] Test Date: 2021-02-23 Pat Name: Marie Becker Department: Room: Gender: Female Manager Orange: : 1945 Requested By: Ivania Johnson Order Number: [id number] Javan MD: Brandt Davis M.D. Measurements Intervals [place] Rate: 66 P: 23 OR: 152 QRS: -20 QRSD: 106 T: 30 QT: 413 QTc: 435 Interpretive Statements SINUS RHYTHM LEFT VENTRICULAR HYPERTROPHY AND ST-T CHANGE [VOLTAGE CRITERIA PLUS ST/T ABNORMALITY] Compared to ECG 09/28/2020 13:56:20 No significant changes Electronically Signed On 02-23-2021 19:15:40 CDT by Brandt Davis M.D. [email or web address] [email or web address] general [email or web address].[employer]/store/NU/[id number] f
[2021-02-23 01:26] VITALS: BP 169/88; PULSE 67; RESP 16; O2SAT 98
[2021-02-23 02:18] VITALS: PULSE 72; RESP 16; O2SAT 97
[2021-02-23 02:22] VITALS: BP 169/67; PULSE 64; RESP 16; O2SAT 98
--- NOTE | 2021-02-23 05:01 | ED_ITS ---
HPI - Abdominal Pain General: Chief Complaint: Abdominal Pain Stated Complaint: INFECTION Time Seen by Provider: 02/22/21 23:41 Source: patient and family Mode of arrival: ambulatory Limitations: no limitations History of Present Illness: HPI narrative: 75-year-old female has had intermittent generalized abdominal pain over the past 2 weeks. States that it mainly happens in the afternoon/early evening. Sometimes associated with nausea, but no vomiting. No chest pain or difficulty breathing. No diaphoresis. She has been constipated lately, has not tried anything xmwd-coh-pijevbw yet. Apparently is scheduled for cholecystectomy soon. Denies alcohol or NSAID use. At this time her pain has completely resolved, she is asymptomatic. She does have a history of CVA, nonsustained V. tach-trolled on carvedilol. MD elicited complaint: abdominal pain Pertinent past history: constipation Onset (ago): week(s) Pain Consistency: intermittent, now resolved and colicky Location: Epigastric and Suprapubic Severity: similar to previous episodes Quality: cramping and aching Radiation: none Exacerbating factors: nothing Relieving factors: nothing Associated Symptoms: Reports bloating and constipation; Denies chills, diarrhea, fever(s), hematemesis, melena, nausea, syncope and vomiting Review of Systems General: Reports: 10 or more systems reviewed and unremarkable except in HPI and below Const: Denies: fever(s), chills, body aches, change in appetite, change in tee ght, fatigue or diaphoresis Eyes: Denies: change in vision or blurry vision ENMT: Denies: mouth pain or oral sores Card: Denies: chest pain, palpitations, irregular heart rhythm, swelling of feet/ankles, lightheadedness or syncope Resp: Denies: dyspnea, productive cough or wheezing GI: Reports: abdominal pain, constipation and bloating; Denies: nausea, vomiting, hematemesis, diarrhea or melena Musc: Denies: neck pain, back pain or extremity pain Neuro: Denies: headache(s), numbness in extremities or weakness in extremities Ziyad/Lymph: Denies: easy bruising or easy bleeding All/Imm: Denies: urticaria, throat swelling or tongue swelling PFS ED PFSH: Medical History History of stroke HTN (hypertension) Hypokalemia Hyponatremia Syncope Ventricular tachycardia by electrocardiogram Social History Smoking and tobacco status: never smoked Alcohol intake: never Lives independently: No (Patient states that she lives with her sister and brother sometimes.) Marital status: / Physical Exam Const: COMMON NORMALS: no acute distress, average body habitus, patient oriented x3, healthy appearing and alert GENERAL APPEARANCE: cooperative and comfortable; not in distress ORIENTATION/CONSCIOUSNESS: Yes oriented to person and Yes oriented to place HENMT: COMMON NORMALS: normocephalic and atraumatic HEAD & SCALP: normocephalic and atraumatic Eye: COMMON NORMALS: Equal, round and reactive pupils present, EOMs intact bilaterally, conjunctivae normal and no scleral icterus GENERAL EYE: appearance normal, both eyes and all related structures CONJUNCTIVA: Yes conjunctivae normal PUPIL: Yes Equal, round and reactive pupils present Chest: COMMONS NORMALS: normal inspection of the chest and normal palpation of entire chest wall Resp: COMMON NORMALS: normal respiratory effort and No retractions EFFORT & INSPECTION: Yes able to speak in complete sentences, No tachypneic and No respiratory distress GI: COMMON NORMALS: Normal to inspection, nondistended, normoactive bowel sounds present, Soft to palpation, non-tender and No hepatosplenomegaly present AUSCULTATION: Yes normoactive bowel sounds PALPATION: Yes Soft to palpation and Yes No hepatosplenomegaly present Neuro: RHONDA COMA SCALE: document GCS findings COMMON NORMALS: patient oriented x3 SENSORIUM/ORIENTATION: Yes alert, Yes oriented to person and Yes oriented to place Skin: COMMON NORMALS: no rashes or lesions noted and no wounds GENERAL SKIN EXAM: no rashes or lesions noted Course Vital Signs: Vital signs: Vital Signs Temperature 98.4 F 02/22/21 19:54 Pulse Rate 64 02/23/21 02:22 Respiratory Rate 16 02/23/21 02:22 Blood Pressure 169/67 02/23/21 02:22 Pulse Oximetry 98 02/23/21 02:22 MDM - Abdominal Pain MDM Narrative: Medical decision making narrative: 75-year-old with upper abdominal pain over the past 2 weeks, intermittent, currently asymptomatic. EKG; 0125 normal sinus rhythm with a rate of 66, MS 152, QRS 106, QTc 427, LVH, no ST segment elevation or depression. No significant change when compared to previous EKG. CBC and chemistry stable. Potassium slightly low. Lipase 63 UA is clear. She is scheduled to have a cholecystectomy; I recommended that she follow a strict fat free diet until then to avoid episodes of biliary colic. Follow-up with her PCP in the next 2 to 3 days for recheck. Return immediately to the ER she develops fever, worsening pain, vomiting, or any other worsening symptoms. Differential Diagnosis: Differential diagnosis abdominal pain: Likely abdominal pain, acute appendicitis, calculus of kidney, constipation, diverticulitis, gastroenteritis, pancreatitis and small bowel obstruction Medical Records: Attestation: I reviewed the patient's medical records. Lab Data: Attestation: I reviewed the patient's lab results. Labs: Lab Results 02/22/21 02/22/21 02/22/21 Range/Units 23:43 23:43 23:43 WBC 6.6 (4.0-10.0) 10^3/ uL RBC 4.13 (4.1-5.3) 10^6/u L Hgb 12.9 (11.5-15.3) g/dL Hct 38.5 (37.0-47.0) % MCV 93.2 (81-99) fL MCH 31.2 (28.0-34.0) pg MCHC 33.5 (30.0-36.0) g/dL RDW 12.6 (12.1-15.1) % Plt Count 228 (130-400) 10^3/c mm MPV 10.7 H (7.4-10.4) fL Neut % (Auto) 69.7 % Lymph % (Auto) 19.6 % [place] % (Auto) 8.3 % Eos % (Auto) 1.7 % Baso % (Auto) 0.5 % Neut # (Auto) 4.60 (1.8-7.7) 10^3/u L Lymph # (Auto) 1.3 (0.8-4.8) 10^3/u L [place] # (Auto) 0.6 (0.2-0.9) 10^3/u L Eos # (Auto) 0.1 (0.0-0.8) 10^3/u L Baso # (Auto) 0.0 (0.0-0.1) 10^3/u L Nucleated RBC % (a uto) 0 % Nucleated RBCs # 0.0 /100WBC Sodium 141 (136-145) mmol/L Potassium 3.3 L (3.5-5.1) mmol/L Chloride 103 (98-107) mmol/L Carbon Dioxide 29 (22-29) mmol/L Anion Gap 12.3 (5-19) BUN 15 (8-23) mg/dL Creatinine 0.5 (0.5-0.9) mg/dL GFR Calculation Not Reportable Glucose 123 H (65-115) mg/dL Calculated Osmolal ity 294 (285-295) mOsm/k g Lactate 1.0 (0.5-2.2) mmol/L Calcium 8.9 (8.5-10.5) mg/dL Total Bilirubin 0.4 (0.15-1.2) mg/dL AST 18 (0-32) U/L ALT 15 (0-33) U/L Alkaline Phosphata se 83 (35-105) IU/L Total Protein 6.9 (6.6-8.7) g/dL Albumin 4.4 (3.5-5.2) g/dL Globulin 2.5 (1.3-4.6) g/dL Lipase 63 H (13-60) U/L Urine Color (Yellow) Urine Appearance (CLEAR) Urine pH (5-7) Ur Specific Gravit y (1.005-1.030) Urine Protein (Negative) Urine Glucose (UA) (Normal) Urine Ketones (Negative) Urine Blood (Negative) Urine Nitrate (Negative) Urine Bilirubin (Negative) Urine Urobilinogen (Negative) mg/dL Ur Leukocyte Kimberlyn ase (Negative) 02/23/21 Range/Units 00:42 WBC (4.0-10.0) 10^3/ uL RBC (4.1-5.3) 10^6/u L Hgb (11.5-15.3) g/dL Hct (37.0-47.0) % MCV (81-99) fL MCH (28.0-34.0) pg MCHC (30.0-36.0) g/dL RDW (12.1-15.1) % Plt Count (130-400) 10^3/c mm MPV (7.4-10.4) fL Neut % (Auto) % Lymph % (Auto) % [place] % (Auto) % Eos % (Auto) % Baso % (Auto) % Neut # (Auto) (1.8-7.7) 10^3/u L Lymph # (Auto) (0.8-4.8) 10^3/u L [place] # (Auto) (0.2-0.9) 10^3/u L Eos # (Auto) (0.0-0.8) 10^3/u L Baso # (Auto) (0.0-0.1) 10^3/u L Nucleated RBC % (a uto) % Nucleated RBCs # /100WBC Sodium (136-145) mmol/L Potassium (3.5-5.1) mmol/L Chloride (98-107) mmol/L Carbon Dioxide (22-29) mmol/L Anion Gap (5-19) BUN (8-23) mg/dL Creatinine (0.5-0.9) mg/dL GFR Calculation Glucose (65-115) mg/dL Calculated Osmolal ity (285-295) mOsm/k g Lactate (0.5-2.2) mmol/L Calcium (8.5-10.5) mg/dL Total Bilirubin (0.15-1.2) mg/dL AST (0-32) U/L ALT (0-33) U/L Alkaline Phosphata se (35-105) IU/L Total Protein (6.6-8.7) g/dL Albumin (3.5-5.2) g/dL Globulin (1.3-4.6) g/dL Lipase (13-60) U/L Urine Color Yellow (Yellow) Urine Appearance Clear (CLEAR) Urine pH 7 (5-7) Ur Specific Gravit y 1.005 (1.005-1.030) Urine Protein Neg (Negative) Urine Glucose (UA) Norm (Normal) Urine Ketones Negative (Negative) Urine Blood Neg (Negative) Urine Nitrate Negative (Negative) Urine Bilirubin Neg (Negative) Urine Urobilinogen Norm (Negative) mg/dL Ur Leukocyte Kimberlyn ase Negative (Negative) Discharge Plan Discharge Patient Disposition: Home Clinical Impression: Abdominal pain Qualifiers: Abdominal location: unspecified location Qualified Code(s): R10.9 - Unspecified abdominal pain Condition: Stable Prescriptions: No Action carvedilol 25 mg tablet 25 mg PO BID Qty: 180 RF: 3 lisinopril 20 mg Tablet 40 mg PO DAILY Qty: 30 RF: 0 multivitamin [Multiple Vitamins] Tablet 2 tab PO DAILY RF: 0 cyanocobalamin (vitamin B-12) [Vitamin B-12] 1,000 mcg Tablet 1,000 mcg PO DAILY RF: 0 Vitamin C 1 tab PO DAILY RF: 0 Discharge Orders: Discharge ED (Routine); Ordered 02/23/21 Ordered By: Ivania Johnson Referrals: Lennox Nice MD [Primary Care Provider] - Discharge Diet: Advance as tolerated Discharge Activity: Resume usual activity Patient Instructions: Abdominal Pain (ED) Activity Restrictions/Additional Instructions: Call to schedule follow-up appointment with your primary care doctor in the next 2 to 3 days for recheck. Try and avoid any high fat or qgzp-yn-mtbosz foods, as these will aggravate your gallbladder. Return immediately to the ER if you develop vomiting, worsening pain, chest pain, palpitations, difficulty breathing, fever or swelling of your abdomen. Coding Level of Care Code ED Va Underwriter for Chg Fwd Exam Comprehensive
== END 2021-02-23 02:24 | disposition home or self-care (01) ==
PROVIDERS: Nurse Practitioner Family; Emergency Provider Family Medicine; PCP Family Medicine
DX: R10.9 Unspecified abdominal pain (principal); I10 Essential (primary) hypertension; Z86.73 Personal history of transient ischemic attack (TIA), and cerebral infarction without residual deficits
CPT/HCPCS: 80053; 81003; 83605; 83690; 85025; 93005; 99283

== ENCOUNTER 2021-07-27 16:01 | Emergency (ER) | payer BC, SELFPAY ==
[2021-07-27 16:27] VITALS: BP 122/60; PULSE 66; RESP 18; TEMP 36.5; O2SAT 97; BMI 24.4
--- NOTE | 2021-07-27 20:09 | XRR_ITS ---
PROCEDURE INFORMATION: Exam: XR Chest Exam date and time: 07/27/2021 8:09 PM Age: 75 years old Clinical indication: Other: Syncope TECHNIQUE: Imaging protocol: XR of the chest. Views: 1 view. COMPARISON: CR XR chest 1V portable [id number] 08/05/2020 11:47 AM FINDINGS: Lungs: Unremarkable. No consolidation. Pleural spaces: Unremarkable. No pleural effusion. No pneumothorax. Heart/Mediastinum: There is cardiomegaly. Bones/joints: No acute abnormality. XR/XR chest 1V portable [id number] IMPRESSION: No acute findings.
--- NOTE | 2021-07-27 20:09 | CTR_ITS ---
PROCEDURE INFORMATION: Exam: CT Head Without Contrast Exam date and time: 07/27/2021 8:09 PM Age: 75 years old Clinical indication: Syncope and collapse TECHNIQUE: Imaging protocol: Computed tomography of the head without contrast. Radiation optimization: All CT scans at this facility use at least one of these dose optimization techniques: automated exposure control; mA and/or kV adjustment per patient size (includes targeted exams where dose is matched to clinical indication); or iterative reconstruction. COMPARISON: CT head wo con* [id number] 08/01/2020 3:27 PM RADIATION DOSE METRICS: Total DLP (mGy-cm): 1393.82 FINDINGS: Brain: There is volume loss and periventricular low density compatible with chronic small vessel disease changes. There is no acute hemorrhage, edema or mass effect. Cerebral ventricles: No ventriculomegaly. Paranasal sinuses: Visualized sinuses are unremarkable. No fluid levels. Mastoid air cells: Visualized mastoid air cells are well aerated. Bones/joints: Unremarkable. No acute fracture. Soft tissues: Unremarkable. CT/CT head wo con* [id number] IMPRESSION: No acute intracranial abnormality. Radiation Dose CTDIVOL = (mGy): DLP = 1393.82 (mGy-cm)
--- NOTE | 2021-07-27 20:10 | ECG_ITS ---
[facility] Test Date: 2021-07-27 Pat Name: Marie Becker Department: Room: Gender: Female Trend Investigator: : 1945 Requested By: Gerardo Bond Order Number: [id number] Javan MD: MITUL ESPINOSA Measurements Intervals [place] Rate: 63 P: 40 TN: 140 QRS: -9 QRSD: 108 T: 26 QT: 412 QTc: 425 Interpretive Statements SINUS RHYTHM NONSPECIFIC ST & T-WAVE ABNORMALITY Compared to ECG 02/23/2021 01:22:28 T-wave abnormality now present Left ventricular hypertrophy no longer present ST (T wave) deviation no longer present Electronically Signed On 07-28-2021 18:24:01 CDT by MITUL ESPINOSA [email or web address]/[id number] f
--- NOTE | 2021-07-27 20:16 | ED_ITS ---
HPI - Seizure General: Chief Complaint: Seizure Stated Complaint: SEIZURE Time Seen by Provider: 07/27/21 19:47 History of Present Illness: HPI Narrative: 75-year-old female with a history of syncopal episodes. She had a syncopal episode a couple of weeks ago, with a work-up in [place] that was negative according to the sister of this patient. She presents today after having a brief less than 32nd syncopal episode. Evidently she was sitting in a chair after eating, broke out into a sweat, says she felt bad got up and shortly after getting up took 3 steps and slowly fell to the floor. Her sister lowered her, so there was no significant trauma. She was tired and mildly confused afterwards, but this cleared quickly. She is asymptomatic currently. She denied any chest pain MD complaint: syncope Onset (ago): hour(s) Description of Episode: loss of consciousness -: second(s) Witnessed: Yes - by Bystander Trauma: No Seizure History: No Place: Home Possible Precipitating Event: none Associated symptoms: Reports diaphoresis; Deny chest pain, chills, confusion, cough, fever(s), anorexia, rash, short of breath or weakness Review of Systems Const: Reports: diaphoresis; Denies: fever(s) or chills Card: Denies: chest pain Resp: Denies: dyspnea, productive cough or non-productive cough GI: Denies: abdominal pain, nausea or vomiting Neuro: Denies: confusion PFSH ED PFSH: Medical History History of stroke HTN (hypertension) Hypokalemia Hyponatremia Syncope Ventricular tachycardia by electrocardiogram Social History Smoking and tobacco status: never smoked Alcohol intake: never Lives independently: No (Patient states that she lives with her sister and brother sometimes.) Marital status: / Physical Exam Const: COMMON NORMALS: no acute distress and alert GENERAL APPEARANCE: frail appearing; not in distress and not ill appearing ORIENTATION/CONSCIOUSNESS: Yes awake, Yes oriented to person and Yes oriented to place; not oriented to time HENMT: COMMON NORMALS: normocephalic and Normal external nose present HEAD & SCALP: normocephalic NOSE: Normal external nose present MOUTH: lip abnormal (eccymosis anterior) Resp: COMMON NORMALS: normal respiratory effort, No use of accessory muscles and clear to auscultation bilaterally AUSCULTATION: clear to auscultation bilaterally Cardio: COMMON NORMALS: regular rate and regular rhythm RATE: regular rate RHYTHM: regular rhythm GI: COMMON NORMALS: Normal to inspection, nondistended, normoactive bowel sounds present, Soft to palpation and non-tender PALPATION: Yes Soft to palpation Neuro: SENSORIUM/ORIENTATION: Yes alert, Yes oriented to person, Yes oriented to place and No oriented to time CRANIAL NERVES: Yes CN normal except as noted COORDINATION/BALANCE: umrjzh-zw-nyjz test normal GAIT: Yes Unable to assess gait SENSORY EXAM: Yes extremities (normal) MOTOR EXAM: Pronator motor function not present COORDINATION: jczojn-fu-vyln test normal Course Vital Signs: Vital signs: Vital Signs Temperature 97.7 F 07/27/21 16:27 Pulse Rate 66 07/27/21 16:27 Respiratory Rate 18 07/27/21 16:27 Blood Pressure 122/60 07/27/21 16:27 Pulse Oximetry 97 07/27/21 16:27 MDM - Seizure MDM Narrative: Medical decision making narrative: 75-year-old female with a syncopal episode at home. She has been mildly bradycardic at times in the mid 40s. Otherwise no arrhythmias. No ST changes on EKG. Her troponin is 10, hours after the event. Her head CT is negative. Her chest x-ray is negative as well. She will be allowed home. Lab Data: Labs: Lab Results 07/27/21 07/27/21 07/27/21 20:30 20:30 20:30 WBC 6.6 10^3/uL 10^3/ uL (4.0-10.0) RBC 3.71 10^6/uL L 10 ^6/uL (4.1-5.3) Hgb 12.1 g/dL g/dL (11.5-15.3) Hct 36.3 % L % (37.0-47.0) MCV 97.8 fl fl (81-99) MCH 32.6 pg pg (28.0-34.0) MCHC 33.3 g/dL g/dL (30.0-36.0) RDW 13.0 % % (12.1-15.1) Plt Count 275 10^3/cmm 10^3 /cmm (130-400) MPV 10.8 fL H fL (7.4-10.4) Neut % (Auto) 75.9 % % Lymph % (Auto) 13.9 % % [place] % (Auto) 8.0 % % Eos % (Auto) 1.4 % % Baso % (Auto) 0.3 % % Neut # (Auto) 5.04 10^3/uL 10^3 /uL (1.8-7.7) Lymph # (Auto) 0.9 10^3/uL 10^3/ uL (0.8-4.8) [place] # (Auto) 0.5 10^3/uL 10^3/ uL (0.2-0.9) Eos # (Auto) 0.1 10^3/uL 10^3/ uL (0.0-0.8) Baso # (Auto) 0.0 10^3/uL 10^3/ uL (0.0-0.1) Nucleated RBC % (a uto) 0 % % Nucleated RBCs # 0.0 /100WBC /100W BC PT 12.60 SECONDS SEC ONDS (12.1-14.9) INR 0.92 (0.8-1.2) APTT 24.3 SECONDS SECO NDS (23.9-36.7) Sodium 140 mmol/L mmol/L (136-145) Potassium 4.0 mmol/L mmol/L (3.5-5.1) Chloride 103 mmol/L mmol/L (98-107) Carbon Dioxide 26 mmol/L mmol/L (22-29) Anion Gap 15.0 (5-19) BUN 28 mg/dL H mg/dL (8-23) Creatinine 0.5 mg/dL mg/dL (0.5-0.9) GFR Calculation Not Reportable Glucose 89 mg/dL mg/dL (65-115) Calculated Osmolal ity 295 mOsm/kg mOsm/ kg (285-295) Calcium 9.1 mg/dL mg/dL (8.5-10.5) Total Bilirubin 0.3 mg/dL mg/dL (0.15-1.2) AST 14 U/L U/L (0-32) ALT 15 U/L U/L (0-33) Alkaline Phosphata se 88 IU/L IU/L (35-105) Creatine Kinase 63 U/L U/L (26-192) Troponin T Baselin e Total Protein 6.7 g/dL g/dL (6.6-8.7) Albumin 3.9 g/dL g/dL (3.5-5.2) Globulin 2.8 g/dL g/dL (1.3-4.6) 07/27/21 20:30 WBC RBC Hgb Hct MCV MCH MCHC RDW Plt Count MPV Neut % (Auto) Lymph % (Auto) [place] % (Auto) Eos % (Auto) Baso % (Auto) Neut # (Auto) Lymph # (Auto) [place] # (Auto) Eos # (Auto) Baso # (Auto) Nucleated RBC % (a uto) Nucleated RBCs # PT INR APTT Sodium Potassium Chloride Carbon Dioxide Anion Gap BUN Creatinine GFR Calculation Glucose Calculated Osmolal ity Calcium Total Bilirubin AST ALT Alkaline Phosphata se Creatine Kinase Troponin T Baselin e 10 ng/L ng/L (0-10) Total Protein Albumin Globulin Discharge Plan Discharge Patient Disposition: Home Clinical Impression: Syncope Qualifiers: Syncope type: unspecified Qualified Code(s): R55 - Syncope and collapse Condition: Stable Prescriptions: No Action carvedilol 25 mg tablet 25 mg PO BID Qty: 180 RF: 3 lisinopril 20 mg Tablet 40 mg PO DAILY Qty: 30 RF: 0 atorvastatin 10 mg tablet 10 mg PO DAILY RF: 0 donepezil 10 mg tablet 10 mg PO DAILY RF: 0 clopidogrel 75 mg tablet 75 mg PO DAILY RF: 0 escitalopram oxalate 10 mg tablet 10 mg PO DAILY RF: 0 multivitamin [Multiple Vitamins] Tablet 2 tab PO DAILY RF: 0 cyanocobalamin (vitamin B-12) [Vitamin B-12] 1,000 mcg Tablet 1,000 mcg PO DAILY RF: 0 ascorbic acid (vitamin C) [Vitamin C] 500 mg Tablet 500 mg PO DAILY Qty: 0 RF: 0 Discharge Orders: Discharge ED (Routine); Ordered 07/27/21 Ordered By: Gerardo Adams Referrals: Lennox Nice MD [Primary Care Provider] - 1-3 days Discharge Diet: Usual diet Discharge Activity: Increase activity as tolerated Patient Instructions: Syncope (ED) Activity Restrictions/Additional Instructions: Call your doctor Friday morning to be seen in follow-up. More outpatient tests may be needed. Return to the ER for repeated episodes of syncope or passing out, chest discomfort, significant dizziness, any other concerning symptoms Coding Level of Care Code ED Academic Program Specialist for Hannah Fwd Exam Detailed
[2021-07-27 20:42] LABS: Basophils % 0.3 %; Eosinophils # 0.1 10^3/uL (0.0-0.8); Eosinophils % 1.4 %; Hematocrit 36.3 % (37.0-47.0); Hemoglobin 12.1 g/dL (11.5-15.3); Lymphocytes # 0.9 10^3/uL (0.8-4.8); Lymphocytes % 13.9 %; Mean Corpuscular HGB Conc 33.3 g/dL (30.0-36.0); Mean Corpuscular Hemoglobin 32.6 pg (28.0-34.0); Mean Corpuscular Volume 97.8 fl (81-99); Mean Platelet Volume 10.8 fL (7.4-10.4); Monocytes # 0.5 10^3/uL (0.2-0.9); Neutrophils # 5.04 10^3/uL (1.8-7.7); Neutrophils % 75.9 %; Nucleated Red Blood Cells % 0 %; Platelet Count 275 10^3/cmm (130-400); Red Blood Count 3.71 10^6/uL (4.1-5.3); White Blood Count 6.6 10^3/uL (4.0-10.0)
[2021-07-27 21:08] LABS: INR 0.92 (0.8-1.2)
[2021-07-27 21:09] LABS: Partial Thromboplastin Time 24.3 SECONDS (23.9-36.7)
[2021-07-27 21:16] LABS: Troponin(5th) Baseline 10 ng/L (0-10)
[2021-07-27] MEDS: sodium chloride 0.9% 1,000 ML 999 ML IV (21:16)
[2021-07-27 21:17] LABS: Alanine Aminotransferase 15 U/L (0-33); Albumin Level 3.9 g/dL (3.5-5.2); Alkaline Phosphatase 88 IU/L (35-105); Aspartate Amino Transferase 14 U/L (0-32); Blood Urea Nitrogen 28 mg/dL (8-23); Calcium 9.1 mg/dL (8.5-10.5); Carbon Dioxide 26 mmol/L (22-29); Chloride 103 mmol/L (98-107); Creatine Phosphokinase 63 U/L (26-192); Globulin 2.8 g/dL (1.3-4.6); Glucose 89 mg/dL (65-115); Osmolality Calculated 295 mOsm/kg (285-295); Sodium 140 mmol/L (136-145); Total Bilirubin 0.3 mg/dL (0.15-1.2); Total Protein 6.7 g/dL (6.6-8.7)
--- NOTE | 2021-07-27 22:10 | ECG_ITS ---
[facility] Test Date: 2021-07-27 Pat Name: Marie Becker Department: Room: Gender: Female [employer] [place]: : 1945 Requested By: Gerardo Bond Order Number: [id number] Reading MD: MITUL ESPINOSA Measurements Intervals [place] Rate: 64 P: 48 MA: 144 QRS: -11 QRSD: 107 T: 50 QT: 407 QTc: 422 Interpretive Statements SINUS RHYTHM NONSPECIFIC ST & T-WAVE ABNORMALITY Compared to ECG 07/27/2021 20:37:54 No significant changes Electronically Signed On 07-28-2021 18:25:25 CDT by MITUL ESPINOSA [email or web address] [facility] Holdingslawrence [facility] hospitalE[facility].[email or web address]/store/[id number]
[2021-07-27 23:49] VITALS: BP 141/80; PULSE 80; RESP 20; O2SAT 98
== END 2021-07-27 23:45 | disposition home or self-care (01) ==
PROVIDERS: Emergency Provider Emergency Medicine; PCP Family Medicine
DX: R55 Syncope and collapse (principal); Z79.02 Long term (current) use of antithrombotics/antiplatelets; Z86.73 Personal history of transient ischemic attack (TIA), and cerebral infarction without residual deficits; I10 Essential (primary) hypertension
CPT/HCPCS: 36415; 70450; 71045; 80053; 82550; 84484; 85025; 85610; 85730; 93005; 96360; 99283; J7030